=== PATIENT | male | born 1930 | race Hispanic/Latino ===

== ENCOUNTER 2017-09-29 16:17 | Inpatient (IN) | payer MEDICARE, OTHER ==
--- NOTE | 2017-09-29 17:53 | ED PDOC ---
HPI: Trauma/Fall - HPI Time Seen by Provider: 09/29/17 16:35 Chief Complaint (Nursing): Altered Mental Status Chief Complaint (Provider): Fall injury and AMS History Per: Patient History/Exam Limitations: other (memory impairment) Onset/Duration Of Symptoms: Days (x2) Injury Occurred (Timing): Days Ago: (2) Location Of Injury: Left: Arm, Chest Associated Symptoms: Memory Impairment. denies: LOC Additional Complaint(s): Chris Almonte is an 86 year old male, with a past medical history of hypertension, anemia and hypercholesterolemia, who was brought to the emergency department by EMS accompanied by for head and arm injury s/p fall onset x2 days ago. reports that he slipped on ice yesterday, possible head injury without loss of consciousness, he also has injury to left arm and left chest. He was altered and confused with memory problems for a couple of days. Patient states he has never had this problem before but recently he doesn't remember what, where or when. Patient himself denies any medical complaints. PMD: Dr. Canchola - Fall Fall:Prior To Injury: Slipped (on ice) NIHSS Stroke Scale - Date/Time Evaluation Performed Date Performed: 09/29/17 Time Performed: 16:35 When Was NIHSS Performed: Baseline - How Severe is the Stroke Level of Consciousness: 0=Alert LOC to Questions: 1=One correct LOC to commands: 0=Obeys both correctly Best Gaze: 0=Normal Visual: 0=No visual loss Facial: 0=Normal Motor Arm - Left: 0=No drift Motor Arm - Right: 0=No drift Motor Leg - Left: 0=No drift Motor Leg - Right: 0=No drift Limb Ataxia: 0=Absent Sensory: 0=Normal Best Language: 0=No aphasia Dysarthia: 0=Normal articulation Extinction & Inattention (Neglect): 0=Normal, no object Score: 1 Severity Of Stroke: 1-4 = Minor Stroke rTPA Inclusion/Exclusion - Refusal of Treatment Patient Refused Treatment: No - Inclusion Criteria for Altepase Patient is 18 years or Older: Yes The Clinical Diagnosis of Ischemic Stroke That is Causing a Potentially Disabling Neurological Deficit: No Time of Onset is Well Established to be Less Than 270 Minute Before Treatment Would Begin: No Risk/Benefit Discussed With Patient/Family Member Present: No Past Medical History Reviewed: Historical Data, Nursing Documentation, Vital Signs Vital Signs: Last Vital Signs Temp 97.4 F L 09/30/17 08:07 Pulse 75 09/30/17 09:00 Resp 20 09/30/17 08:07 BP 164/95 H 09/30/17 08:34 Pulse Ox 100 09/30/17 11:52 - Medical History PMH: Anemia, Benign Prostatic Hyperplasia, HTN, Hypercholesterolemia - Surgical History Surgical History: No Surg Hx - Family History Family History: States: Unknown Family Hx - Social History Current smoker - smoking cessation education provided: No Alcohol: Other (often) Drugs: Denies - Home Medications Home Medications: Ambulatory Orders Medication Instructions Recorded Aspirin [Ecotrin] 81 mg pe PO DAILY 09/29/17 Atorvastatin [Lipitor] 40 mg PO DAILY 09/29/17 Folic Acid 0.4 mg PO DAILY 09/29/17 Ramipril [Altace] 10 mg PO DAILY 09/29/17 Tamsulosin [Flomax] 0.4 mg PO DAILY 09/29/17 Vit B12/Folic Acid/B6/Aa15 500 mg PO DAILY 09/29/17 [Glycotrol Capsule] Vit B6/Me-Thfolate/Me-B12/Ala 50 mg PO DAILY 09/29/17 [Podiapn Capsule] amLODIPine [Norvasc] 5 mg PO DAILY 09/29/17 - Allergies Allergies/Adverse Reactions: Allergies Allergy/AdvReac Type Severity Reaction Status Date / Time No Known Allergies Allergy Verified 09/29/17 16:19 Review of Systems ROS Statement: Except As Marked, All Systems Reviewed And Found Negative Musculoskeletal: Positive for: Arm Pain (left arm injury), Other (left chest injury) Neurological: Positive for: Altered Mental Status, Other (memory impairment) Physical Exam - Reviewed Nursing Documentation Reviewed: Yes Vital Signs Reviewed: Yes - Physical Exam Appears: Positive for: Non-toxic Head Exam: Positive for: ATRAUMATIC, NORMAL INSPECTION, NORMOCEPHALIC Skin: Positive for: Normal Color, Warm, Dry Eye Exam: Positive for: Normal appearance, EOMI, PERRL Neck: Positive for: Normal, Painless ROM, Supple Cardiovascular/Chest: Positive for: Regular Rate, Rhythm. Negative for: Murmur Respiratory: Positive for: Normal Breath Sounds. Negative for: Respiratory Distress Gastrointestinal/Abdominal: Positive for: Normal Exam, Soft, Other (ecchymosis on left flank). Negative for: Tenderness Back: Positive for: Normal Inspection. Negative for: L CVA Tenderness, R CVA Tenderness Extremity: Positive for: Normal ROM (shoulder normal), Other (ecchymosis on left forearm). Negative for: Deformity (left forearm), Swelling (left forearm) Neurologic/Psych: Positive for: Alert, Oriented (x2), Gait (steady). Negative for: facialist II-XII, Motor/Sensory Deficits - Laboratory Results Result Diagrams: 09/30/17 04:25 09/30/17 04:25 - ECG O2 Sat by Pulse Oximetry: 100 (RA) Pulse Ox Interpretation: Normal Medical Decision Making Medical Decision Making: Initial Impression: mechanical fall with head injury, AMS, left arm injury rule out fracture, left flank injury rule out intra-abdominal bleeding. Differential includes but not limited to: CVA, Intra-cranial bleeding post traumatic, dementia Initial Plan: --Type and screen --Abdomen & Pelvis w/o PO or IV contrast [CT] --Head w/o contrast [CT] --Alcohol serum --BMP --Urine drug screen --Dipstick --CBC w/ differential --PTT --PT --Elbow left 3 views routine [RAD] --Shoulder left [RAD] --reevaluation 17:[address] FINDINGS: HEMORRHAGE: No acute parenchymal, subarachnoid or extra-axial BRAIN: Moderate -significant diffuse/ confluent chronic white matter ischemic changes. There appears to be some extension of these changes into white matter tracts of both basal nuclei. Vascular calcifications are present. VENTRICLES: Moderate dilatation of the 3rd and lateral ventricles felt to be due to central volume loss. CALVARIUM: No acute calvarial fractures. PARANASAL SINUSES: Unremarkable as visualized. No significant inflammatory changes. MASTOID AIR CELLS: Unremarkable as visualized. No inflammatory changes. OTHER FINDINGS: None. IMPRESSION: No acute intracranial hemorrhage. Moderate to significant confluent white matter ischemic changes. 19:00 Patient will be signed out to Dr. Chung, pending CT abdomen, and labs Scribe Attestation: Documented by Blake Burnett, acting as a scribe for Reyes Gaviria MD Provider Scribe Attestation: All medical record entries made by the Scribe were at my direction and personally dictated by me. I have reviewed the chart and agree that the record accurately reflects my personal performance of the history, physical exam, medical decision making, and the department course for this patient. I have also personally directed, reviewed, and agree with the discharge instructions and disposition. Disposition - Clinical Impression Clinical Impression: Altered mental status, Fall, Head injury - Patient ED Disposition Is Patient to be Admitted: Transfer of Care Counseled Patient/Family Regarding: Studies Performed, Diagnosis - Disposition Disposition: Transfer of Care Disposition Time: 19:00 Condition: FAIR Patient Signed Over To: Charlie Chung
--- NOTE | 2017-09-29 18:17 | CT ---
PROCEDURE: CT scan brain dated HISTORY: Head injury. COMPARISON: None available. TECHNIQUE: Contiguous helical/ transaxial computed tomography images were obtained through the head/brain without intravenous contrast. Radiation dose: Total exam DLP = 1082.93 mGy-cm. This CT exam was performed using one or more of the following dose reduction techniques: Automated exposure control, adjustment of the mA and/or kV according to patient size, and/or use of iterative reconstruction technique. . FINDINGS: HEMORRHAGE: No acute parenchymal, subarachnoid or extra-axial BRAIN: Moderate -significant diffuse/ confluent chronic white matter ischemic changes. There appears to be some extension of these changes into white matter tracts of both basal nuclei. Vascular calcifications are present. VENTRICLES: Moderate dilatation of the 3rd and lateral ventricles felt to be due to central volume loss. CALVARIUM: No acute calvarial fractures. PARANASAL SINUSES: Unremarkable as visualized. No significant inflammatory changes. MASTOID AIR CELLS: Unremarkable as visualized. No inflammatory changes. OTHER FINDINGS: None. IMPRESSION: No acute intracranial hemorrhage. Moderate to significant confluent white matter ischemic changes.
[2017-09-29 18:53] LABS: BASO # 0.1 K/uL (0.0-0.2); BASO % 0.7 % (0.0-2.0); EOS % 0.4 % (0.0-4.0); HEMOGLOBIN 13.9 g/dL (12.0-18.0); LYMPH # 2.5 K/uL (1.0-4.3); LYMPH % 25.1 % (20.0-40.0); MEAN CELL VOLUME 95.7 fl (80.0-94.0); MEAN CORPUSCULAR HEMOGLOBIN 31.7 pg (27.0-31.0); MEAN CORPUSCULAR HGB CONC 33.1 g/dL (33.0-37.0); MEAN PLATELET VOLUME 8.5 fl (7.2-11.7); MONO # 0.9 K/uL (0.0-0.8); MONO % 9.5 % (0.0-10.0); NEUT # 6.3 K/uL (1.8-7.0); NEUT % 64.3 % (50.0-75.0); NRBC % 0.1 % (0.0-0.0); RBC 4.38 Mil/uL (4.40-5.90); RED CELL DISTRIBUTION WIDTH 13.3 % (11.5-14.5); WHITE BLOOD COUNT 9.9 K/uL (4.8-10.8)
[2017-09-29 19:01] LABS: BLOOD UREA NITROGEN 19 mg/dl (9-20); GFR AFRICAN-AMERICAN > 60; GFR NON-AFRICAN AMERICAN > 60
[2017-09-29 19:08] LABS: BARBITURATES, UR NEGATIVE (NEGATIVE); BENZODIAZEPINES, UR NEGATIVE (NEGATIVE); OPIATES, UR NEGATIVE (NEGATIVE); PHENCYCLIDINE, UR NEGATIVE (NEGATIVE)
[2017-09-29 19:12] LABS: PARTIAL THROMBOPLASTIN TIME 27.1 Seconds (25.6-37.1); PROTHROMBIN TIME 10.9 Seconds (9.8-13.1)
[2017-09-29] MEDS ORDERED: Potassium Chloride 20 mEq ER Tab PO ONE ×2 (19:14→21:40)
--- NOTE | 2017-09-29 19:20 | ED PDOC ---
- Laboratory Results Result Diagrams: 09/30/17 04:25 09/30/17 04:25 - ECG O2 Sat by Pulse Oximetry: 100 (RA) Medical Decision Making Medical Decision Makin:00 --Patient was transferred to [facility] by Dr. Gaviria, pending labs, CT abdomen, and admission. 19:51 Abd/Pelvis CT FINDINGS: Artifacts: Motion artifact degrades image quality. Lower thorax: Heart size is at the upper limits of normal. There are coronary artery calcifications There is atelectasis and scarring at the lung bases. There is a small hiatal hernia. ABDOMEN: Liver: There is a small calcification in the liver. There are cysts in the liver. Gallbladder and bile ducts: Gallbladder is distended with small dependent stones.There is prominence of the common duct. Pancreas: Pancreas is mildly atrophic. Spleen: unremarkable Adrenals: There is a small left adrenal nodule. There is minimal calcification in the right adrenal. Kidneys and ureters: unremarkable Stomach and bowel: Stomach is partially distended with an air-fluid level. Rotation is normal. There is no obstruction. Ileocecal region is unremarkable. Appendix and terminal ileum are unremarkable.There is radiopaque material and stool throughout the colon. There is minimal diverticulosis Appendix: See stomach and bowel PELVIS: Bladder: There is bladder wall thickening and trabeculation. There are multiple diverticula. There are bladder wall calcifications. There is a mass in the base of the bladder, intrinsic bladder mass versus prostate Reproductive: The prostate is enlarged. Seminal vesicles are unremarkable. ABDOMEN and PELVIS: Intraperitoneal space: There is no free air or free fluid. Bones/joints: There are degenerative changes in the osseus structures. There may be a nondisplaced left ninth rib fracture. Soft tissues: There is a fat containing right inguinal hernia. There is soft tissue thickening in the left inguinal region. There is a small fat containing umbilical hernia. Vasculature: There are vascular calcifications. There are vascular calcifications. Lymph nodes: There is no pathologic adenopathy. IMPRESSION: Bladder wall thickening with trabeculation and wall calcification , differential diagnosis includes schistosomiasis and tuberculosis, mass in the base of the bladder, prostate versus bladder neoplasm, urologic consultation advised Enlarged prostate Gallstones No acute solid visceral or bowel injury identified Pt is aware of results of CT . Additional findings as described above. 20:31 --Dr. Phipps accepted patient for admission Disposition - Clinical Impression Clinical Impression: Altered mental status, Fall, Head injury - POA Present On Arrival: None - Disposition Disposition: Admitted as In-Patient Disposition Time: 19:35 Condition: FAIR
--- NOTE | 2017-09-29 19:51 | CT ---
EXAM: CT Abdomen and Pelvis Without Intravenous Contrast EXAM DATE/TIME: 09/29/2017 5:02 PM CLINICAL HISTORY: 86 years old, male; Pain; Abdominal pain; Generalized; Additional info: Left flank pain injury TECHNIQUE: Axial computed tomography images of the abdomen and pelvis without intravenous contrast. All CT scans at this facility use one or more dose reduction techniques, viz.: automated exposure control; ma/kV adjustment per patient size (including targeted exams where dose is matched to indication; i.e. head); or iterative reconstruction technique. Coronal and sagittal reformatted images were created and reviewed. COMPARISON: There are no prior studies for comparison. FINDINGS: Artifacts: Motion artifact degrades image quality. Lower thorax: Heart size is at the upper limits of normal. There are coronary artery calcifications There is atelectasis and scarring at the lung bases. There is a small hiatal hernia. ABDOMEN: Liver: There is a small calcification in the liver. There are cysts in the liver. Gallbladder and bile ducts: Gallbladder is distended with small dependent stones.There is prominence of the common duct. Pancreas: Pancreas is mildly atrophic. Spleen: unremarkable Adrenals: There is a small left adrenal nodule. There is minimal calcification in the right adrenal. Kidneys and ureters: unremarkable Stomach and bowel: Stomach is partially distended with an air-fluid level. Rotation is normal. There is no obstruction. Ileocecal region is unremarkable. Appendix and terminal ileum are unremarkable.There is radiopaque material and stool throughout the colon. There is minimal diverticulosis Appendix: See stomach and bowel PELVIS: Bladder: There is bladder wall thickening and trabeculation. There are multiple diverticula. There are bladder wall calcifications. There is a mass in the base of the bladder, intrinsic bladder mass versus prostate Reproductive: The prostate is enlarged. Seminal vesicles are unremarkable. ABDOMEN and PELVIS: Intraperitoneal space: There is no free air or free fluid. Bones/joints: There are degenerative changes in the osseus structures. There may be a nondisplaced left ninth rib fracture. Soft tissues: There is a fat containing right inguinal hernia. There is soft tissue thickening in the left inguinal region. There is a small fat containing umbilical hernia. Vasculature: There are vascular calcifications. There are vascular calcifications. Lymph nodes: There is no pathologic adenopathy. IMPRESSION: Bladder wall thickening with trabeculation and wall calcification, differential diagnosis includes schistosomiasis and tuberculosis, mass in the base of the bladder, prostate versus bladder neoplasm, urologic consultation advised Enlarged prostate Gallstones No acute solid visceral or bowel injury identified Additional findings as described above.
[2017-09-30 01:15] LABS: URINE BACTERIA RARE (<OCC); URINE BILIRUBIN NEGATIVE (NEGATIVE); URINE BLOOD NEGATIVE (NEGATIVE); URINE CLARITY SLIGHTY-CLOUDY (Clear); URINE COLOR YELLOW (YELLOW); URINE GLUCOSE (UA) NEG (Normal); URINE LEUKOCYTE ESTERASE NEG Leu/uL (Negative); URINE NITRATE NEGATIVE (NEGATIVE); URINE PROTEIN NEGATIVE (NEGATIVE); URINE UROBILINOGEN 0.2-1.0 mg/dL (0.2-1.0)
[2017-09-30 05:33] LABS: ALB/GLOB RATIO 1.3 (1.0-2.1); ALBUMIN 3.9 g/dL (3.5-5.0); ALT/SGPT 34 U/L (21-72); AST/SGOT 29 U/L (17-59); BLOOD UREA NITROGEN 16 mg/dl (9-20); CALCIUM 9.3 mg/dL (8.4-10.2); GFR AFRICAN-AMERICAN > 60; GFR NON-AFRICAN AMERICAN > 60; HDL CHOLESTEROL 64 MG/DL (30-70)
[2017-09-30 05:35] LABS: HEMOGLOBIN 12.4 g/dL (12.0-18.0); MEAN CORPUSCULAR HEMOGLOBIN 31.7 pg (27.0-31.0); MEAN CORPUSCULAR HGB CONC 33.4 g/dL (33.0-37.0); RBC 3.92 Mil/uL (4.40-5.90); RED CELL DISTRIBUTION WIDTH 12.9 % (11.5-14.5)
[2017-09-30 05:45] LABS: LDL CHOLESTEROL 136 mg/dL (0-129)
[2017-09-30 05:50] LABS: PARTIAL THROMBOPLASTIN TIME 26.2 Seconds (25.6-37.1); PROTHROMBIN TIME 11.4 Seconds (9.8-13.1)
[2017-09-30 05:51] LABS: T4 8.23 ug/dl (5.5-11.0)
[2017-09-30] MEDS ORDERED: Pneumococcal 23-Valent Vaccine IM ONE (06:00)
[2017-09-30] MEDS ORDERED: Influenza Vaccine 18yr & older 0.5 ML/45 MCG SYR IM ONE (06:00)
--- NOTE | 2017-09-30 08:49 | CARD ---
APPROVED REPORT EKG Measurement Heart [id number] <Conclusion> Normal sinus rhythm with sinus arrhythmia Normal ECG
[2017-09-30] MEDS ORDERED: B12 PO SCH (09:00)
[2017-09-30] MEDS ORDERED: B6 PO SCH (09:00)
[2017-09-30] MEDS ORDERED: [UNRECOGNIZED DRUG - OTHER] PO SCH (09:00)
[2017-09-30] MEDS ORDERED: VIT B12 PO SCH (09:00)
[2017-09-30] MEDS ORDERED: Patient's Own Med (Ramipril [Altace] 10 MG) PO SCH (09:00)
[2017-09-30] MEDS ORDERED: ALA PO SCH (09:00)
[2017-09-30] MEDS ORDERED: THFOLATE PO SCH (09:00)
[2017-09-30] MEDS ORDERED: FOLIC ACID PO SCH (09:00)
[2017-09-30] MEDS ORDERED: [UNRECOGNIZED DRUG - OTHER] PO SCH (09:00)
[2017-09-30] MEDS ORDERED: VIT B6 PO SCH (09:00)
--- NOTE | 2017-09-30 11:01 | RAD ---
PROCEDURE: Radiographs of the Left Shoulder HISTORY: left shoulder injury COMPARISON: No prior. FINDINGS: BONES: No acute fracture. JOINTS: Acromioclavicular degenerative changes. SOFT TISSUES: Normal. OTHER FINDINGS: Calcific/ossific densities in the axillary recess and region of the insertion of the supraspinatus tendon. IMPRESSION: No acute fracture. Calcific/ossificdensities in the axillary recess and region of the insertion of the supraspinatus tendon may be related to degenerative loose bodies and/or calcific tendinitis.
--- NOTE | 2017-09-30 11:02 | RAD ---
PROCEDURE: Radiographs of the left elbow. HISTORY: left elbow pain injury COMPARISON: No prior. FINDINGS: BONES: No acute fracture. JOINTS: Mildly narrowed. SOFT TISSUES: Olecranon region soft tissue swelling. JOINT EFFUSION: None. OTHER FINDINGS: None IMPRESSION: Olecranon region soft tissue swelling without demonstrated acute fracture or dislocation. Mild degenerative changes.
--- NOTE | 2017-09-30 11:17 | CARD ---
APPROVED REPORT EXAM: Two-dimensional and M-mode echocardiogram with Doppler and color Doppler. Other Information Quality : FairRhythm : NSR INDICATION Syncope 2D DIMENSIONS IVSd2.11 (0.7-1.1cm)LVDd3.62 (3.9-5.9cm) LVOT Diameter2.01 (1.8-2.4cm)PWd1.52 (0.7-1.1cm) IVSs1.62 (0.8-1.2cm)LVDs3.14 (2.5-4.0cm) FS (%) 13.4 %PWs1.74 (0.8-1.2cm) LVEF (%)62.0 (>50%) M-Mode DIMENSIONS Left Atrium (MM)4.68 (2.5-4.0cm)Aortic Root2.96 (2.2-3.7cm) Aortic Cusp Exc.1.92 (1.5-2.0cm) Aortic Valve AoV Peak Swkosjuy639.5cm/sAoV VTI64.9cmAO Peak GR.41mmHg LVOT Peak Mtsniisj955.6cm/sLVOT VTI19.10cmAO Mean GR.29mmHg AI P 1/2 Sunt008bh Mitral Valve MV E Lerfloor52.9cm/sMV E Peak Gr.77mmHgMV DECEL [id number] MV A Smkhwfqj89.5cm/sMV ODL22coX/A ratio0.6 MVA (PHT)3.70cm2 TDI Lateral E' Peak V9.94cm/sE/Lateral E'5.3E/Medial E'0.0 Tricuspid Valve TR Peak Lkjvoosl663tr/sRAP TECHUVNL0nfUuXC Peak Gr.24mmHg WEDE30hrPo LEFT VENTRICLE The left ventricle is normal in size. There is mild concentric left ventricular hypertrophy on the 2D study. The left ventricular function is normal. The left ventricular ejection fraction is 65-70%. There is normal LV segmental wall motion. Transmitral Doppler flow pattern is Grade I-abnormal relaxation pattern. No left ventricle thrombus noted on this study. There is no ventricular septal defect visualized. There is no left ventricular aneurysm. There is no mass noted in the left ventricle. RIGHT VENTRICLE The right ventricle is normal size. There is normal right ventricular wall thickness. The right ventricular systolic function is normal. ATRIA The left atrium is mildly dilated. There is no thrombus suspected in the left atrium. The right atrium size is normal. The interatrial septum is intact with no evidence for an atrial septal defect. AORTIC VALVE The aortic valve is moderately to severely calcified. There is mild aortic regurgitation. There is moderate valvular aortic stenosis. Calculated aortic valve area is 1.10 cm2 with maximum pressure gradient of 37 mmHg and mean pressure gradient of 29 mmHg. MITRAL VALVE The mitral valve is normal in structure. There is no evidence of mitral valve prolapse. There is no mitral valve stenosis. Mitral regurgitation is mild to moderate. TRICUSPID VALVE The tricuspid valve is normal in structure. There is moderate tricuspid regurgitation. Right ventricular systolic pressure is estimated at 35 mmHg. There is no tricuspid valve prolapse or vegetation. There is no tricuspid valve stenosis. PULMONIC VALVE The pulmonic valve is not well visualized. There is no pulmonic valvular regurgitation. GREAT VESSELS The aortic root is normal in size. The IVC was not well visualized. PERICARDIAL EFFUSION There is a small anterior echo free space. There is no pleural effusion. <Conclusion> The left ventricle is normal in size. There is mild concentric left ventricular hypertrophy on the 2D study. The left ventricular function is normal. The left ventricular ejection fraction is 65-70%. The left atrium is mildly dilated. There is moderate aortic stenosis with an aortic valve area of 1.10 cm2 and there is mild aortic regurgitation. The mitral valve and tricuspid valves are normal. There is mild to moderate mitral regurgitation and moderate tricuspid regurgitation.
--- NOTE | 2017-09-30 14:34 | CP.PCM.CON ---
History of Present Illness - History of Present Illness History of Present Illness: 86 yr old male who fell at home yesterday and was disoriented. The says that in the last week, he has had 2 episodes of falling over while he was sitting down, not even when he was standing. There is no history of subdural, stroke, or aphasia. No focal weakness noted, no urinary incontinence, headache, nausea or vomiting. He has not started any new medications, nor has he had any recent surgical procedures. At baseline, says he pays the bills, takes care of Adls and drives. He consumes, according to her report, about 3 shots of whisky daily and has not drank in 3 days. PMH/PSH: as above. FH/SH: . no children. Icelandic. 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 All: nkda. Laboratory Results - last 72 hr 09/29/17 09/29/17 09/29/17 18:15 18:45 18:45 WBC 9.9 RBC 4.38 L Hgb 13.9 Hct 41.9 MCV 95.7 H MCH 31.7 H MCHC 33.1 RDW 13.3 Plt Count 260 MPV 8.5 Neut % (Auto) 64.3 Lymph % (Auto) 25.1 [place] % (Auto) 9.5 Eos % (Auto) 0.4 Baso % (Auto) 0.7 Neut # 6.3 Lymph # 2.5 [place] # 0.9 H Eos # 0.0 Baso # 0.1 PT INR APTT Sodium 141 Potassium 3.1 L Chloride 97 L Carbon Dioxide 30 Anion Gap 17 BUN 19 Creatinine 1.1 Est GFR ( Amer) > 60 Est GFR (Non-Af Amer) > 60 Random Glucose 112 H Calcium 10.0 Total Bilirubin AST ALT Alkaline Phosphatase Total Protein Albumin Globulin Albumin/Globulin Ratio Triglycerides Cholesterol LDL Cholesterol Direct HDL Cholesterol Prostate Specific Ag Vitamin B12 Thyroxine (T4) TSH 3rd Generation Urine Color Urine Clarity Urine pH Ur Specific [place] Urine Protein Urine Glucose (UA) Urine Ketones Urine Blood Urine Nitrate Urine Bilirubin Urine Urobilinogen Ur Leukocyte Esterase Urine RBC (Auto) Urine Microscopic WBC Urine Bacteria Urine Opiates Screen Urine Methadone Screen Ur Barbiturates Screen Ur Phencyclidine Scrn Ur Amphetamines Screen U Benzodiazepines Scrn U Oth Cocaine Metabols U Cannabinoids Screen Alcohol, Quantitative < 10 Blood Type A POSITIVE Antibody Screen Negative BBK History Checked No verified bt 09/29/17 09/29/17 09/30/17 18:45 18:45 01:08 WBC RBC Hgb Hct MCV MCH MCHC RDW Plt Count MPV Neut % (Auto) Lymph % (Auto) [place] % (Auto) Eos % (Auto) Baso % (Auto) Neut # Lymph # [place] # Eos # Baso # PT 10.9 INR 1.0 APTT 27.1 Sodium Potassium Chloride Carbon Dioxide Anion Gap BUN Creatinine Est GFR ( Amer) Est GFR (Non-Af Amer) Random Glucose Calcium Total Bilirubin AST ALT Alkaline Phosphatase Total Protein Albumin Globulin Albumin/Globulin Ratio Triglycerides Cholesterol LDL Cholesterol Direct HDL Cholesterol Prostate Specific Ag Vitamin B12 Thyroxine (T4) TSH 3rd Generation Urine Color Yellow Urine Clarity Slighty-cloudy Urine pH 7.0 Ur Specific [place] 1.015 Urine Protein Negative Urine Glucose (UA) Neg Urine Ketones Negative Urine Blood Negative Urine Nitrate Negative Urine Bilirubin Negative Urine Urobilinogen 0.2-1.0 Ur Leukocyte Esterase Neg Urine RBC (Auto) 3 Urine Microscopic WBC 2 Urine Bacteria Rare Urine Opiates Screen Negative Urine Methadone Screen Negative Ur Barbiturates Screen Negative Ur Phencyclidine Scrn Negative Ur Amphetamines Screen Negative U Benzodiazepines Scrn Negative U Oth Cocaine Metabols Negative U Cannabinoids Screen Negative Alcohol, Quantitative Blood Type Antibody Screen BBK History Checked 09/30/17 09/30/17 09/30/17 04:25 04:25 04:25 WBC 8.0 RBC 3.92 L Hgb 12.4 Hct 37.2 MCV 95.0 H MCH 31.7 H MCHC 33.4 RDW 12.9 Plt Count 208 MPV Neut % (Auto) Lymph % (Auto) [place] % (Auto) Eos % (Auto) Baso % (Auto) Neut # Lymph # [place] # Eos # Baso # PT 11.4 INR 1.0 APTT 26.2 Sodium 141 Potassium 3.5 L Chloride 102 Carbon Dioxide 28 Anion Gap 15 BUN 16 Creatinine 1.0 Est GFR ( Amer) > 60 Est GFR (Non-Af Amer) > 60 Random Glucose 111 H Calcium 9.3 Total Bilirubin 0.8 AST 29 ALT 34 Alkaline Phosphatase 58 Total Protein 7.0 Albumin 3.9 Globulin 3.1 Albumin/Globulin Ratio 1.3 Triglycerides 204 H Cholesterol 235 H LDL Cholesterol Direct 136 H HDL Cholesterol 64 Prostate Specific Ag 7.27 H Vitamin B12 319 Thyroxine (T4) 8.23 TSH 3rd Generation 1.58 Urine Color Urine Clarity Urine pH Ur Specific [place] Urine Protein Urine Glucose (UA) Urine Ketones Urine Blood Urine Nitrate Urine Bilirubin Urine Urobilinogen Ur Leukocyte Esterase Urine RBC (Auto) Urine Microscopic WBC Urine Bacteria Urine Opiates Screen Urine Methadone Screen Ur Barbiturates Screen Ur Phencyclidine Scrn Ur Amphetamines Screen U Benzodiazepines Scrn U Oth Cocaine Metabols U Cannabinoids Screen Alcohol, Quantitative Blood Type Antibody Screen BBK History Checked Temp Pulse Resp BP Pulse Ox 98.0 F 80 20 133/77 98 09/30/17 12:28 09/30/17 12:28 09/30/17 12:28 09/30/17 12:28 09/30/17 12:28 On exam: Awake, not alert, not oriented to person or place or time. Very agitated, hit me on exam. Speaks tajik, and says he is not dysarthric Unable to test for asterixis. EOMI. Cn 2-12 normal. Motor: very strong all muscle groups. Unable to test sensory modalities. Speech is fluent, but tangential. Refuses to name or repeat. Does not follow commands. Cerebellar: refused gait testing. +1 dtr ul and ll bl. Toes downgoing. No clonus. Ct head: normal. Impression: 86 yr old male with what appears to be encephalopathy, differential of hepatic or uremic. He has a vague history of daily alcohol use, that the states is about 1-2 shots, but i suspect that the amount is more. I am also concerned about an infection. I will order ammonia, lfts, amylase, lipase, MRI brain withotu rudy and EEG. If above are normal, we will do LP. In addition, he should be watched for alcohol withdrawal, although he is not yet displaying signs. Plan: 1. MRI Brain without gadolinium 2. Ammonia, amylase, lipase, lfts 3. IV fluids normal saline/ ? banana bag. 4. EEG Review of Systems - Review of Systems Systems not reviewed;Unavailable: Altered Mental Status, Psychotic - Neurological Neurological: Behavioral Changes, Dizziness Past Patient History - Past Medical History & Family History Past Medical History?: Yes - Past Social History Alcohol: Other (often) Drugs: Denies - CARDIAC Hx Hypercholesterolemia: Yes Hx Hypertension: Yes - PULMONARY Hx Respiratory Disorders: No - HEMATOLOGICAL/ONCOLOGICAL Hx Anemia: Yes - MUSCULOSKELETAL/RHEUMATOLOGICAL Hx Falls: Yes - GENITOURINARY/GYNECOLOGICAL Hx Genitourinary Disorders: Yes Other/Comment: BPH - PSYCHIATRIC Hx Substance Use: No - SURGICAL HISTORY Hx Surgeries: No - ANESTHESIA Hx Anesthesia: No Hx Anesthesia Reactions: No Meds Allergies/Adverse Reactions: Allergies Allergy/AdvReac Type Severity Reaction Status Date / Time No Known Allergies Allergy Verified 09/29/17 16:19 - Medications Medications: Current Medications Amlodipine Besylate (Norvasc) 5 mg PO DAILY [facility] Last Admin: 09/30/17 08:33 Dose: 5 mg Aspirin (Ecotrin) 81 mg PO DAILY [facility] Last Admin: 09/30/17 08:34 Dose: 81 mg Atorvastatin Calcium (Lipitor) 40 mg PO DAILY [facility] Last Admin: 09/30/17 08:34 Dose: 40 mg Enoxaparin Sodium (Lovenox) 40 mg SC DAILY [facility] PRN Reason: Protocol Folic Acid (Folic Acid) 1 mg PO DAILY [facility] Last Admin: 09/30/17 13:06 Dose: 1 mg Ramipril (Altace) 10 mg PO DAILY [facility] Last Admin: 09/30/17 08:34 Dose: 10 mg Tamsulosin HCl (Flomax) 0.4 mg PO DAILY [facility] Last Admin: 09/30/17 08:34 Dose: 0.4 mg Results - Vital Signs Recent Vital Signs: Last Vital Signs Temp 98.0 F 09/30/17 12:28 Pulse 80 09/30/17 12:28 Resp 20 09/30/17 12:28 BP 133/77 09/30/17 12:28 Pulse Ox 98 09/30/17 12:28 - Labs Result Diagrams: 09/30/17 04:25 09/30/17 04:25 Labs: Laboratory Results - last 24 hr 09/29/17 09/29/17 09/29/17 18:15 18:45 18:45 WBC 9.9 RBC 4.38 L Hgb 13.9 Hct 41.9 MCV 95.7 H MCH 31.7 H MCHC 33.1 RDW 13.3 Plt Count 260 MPV 8.5 Neut % (Auto) 64.3 Lymph % (Auto) 25.1 [place] % (Auto) 9.5 Eos % (Auto) 0.4 Baso % (Auto) 0.7 Neut # 6.3 Lymph # 2.5 [place] # 0.9 H Eos # 0.0 Baso # 0.1 PT INR APTT Sodium 141 Potassium 3.1 L Chloride 97 L Carbon Dioxide 30 Anion Gap 17 BUN 19 Creatinine 1.1 Est GFR ( Amer) > 60 Est GFR (Non-Af Amer) > 60 Random Glucose 112 H Calcium 10.0 Total Bilirubin AST ALT Alkaline Phosphatase Total Protein Albumin Globulin Albumin/Globulin Ratio Triglycerides Cholesterol LDL Cholesterol Direct HDL Cholesterol Prostate Specific Ag Vitamin B12 Thyroxine (T4) TSH 3rd Generation Urine Color Urine Clarity Urine pH Ur Specific [place] Urine Protein Urine Glucose (UA) Urine Ketones Urine Blood Urine Nitrate Urine Bilirubin Urine Urobilinogen Ur Leukocyte Esterase Urine RBC (Auto) Urine Microscopic WBC Urine Bacteria Urine Opiates Screen Urine Methadone Screen Ur Barbiturates Screen Ur Phencyclidine Scrn Ur Amphetamines Screen U Benzodiazepines Scrn U Oth Cocaine Metabols U Cannabinoids Screen Alcohol, Quantitative < 10 Blood Type A POSITIVE Antibody Screen Negative BBK History Checked No verified bt 09/29/17 09/29/17 09/30/17 18:45 18:45 01:08 WBC RBC Hgb Hct MCV MCH MCHC RDW Plt Count MPV Neut % (Auto) Lymph % (Auto) [place] % (Auto) Eos % (Auto) Baso % (Auto) Neut # Lymph # [place] # Eos # Baso # PT 10.9 INR 1.0 APTT 27.1 Sodium Potassium Chloride Carbon Dioxide Anion Gap BUN Creatinine Est GFR ( Amer) Est GFR (Non-Af Amer) Random Glucose Calcium Total Bilirubin AST ALT Alkaline Phosphatase Total Protein Albumin Globulin Albumin/Globulin Ratio Triglycerides Cholesterol LDL Cholesterol Direct HDL Cholesterol Prostate Specific Ag Vitamin B12 Thyroxine (T4) TSH 3rd Generation Urine Color Yellow Urine Clarity Slighty-cloudy Urine pH 7.0 Ur Specific [place] 1.015 Urine Protein Negative Urine Glucose (UA) Neg Urine Ketones Negative Urine Blood Negative Urine Nitrate Negative Urine Bilirubin Negative Urine Urobilinogen 0.2-1.0 Ur Leukocyte Esterase Neg Urine RBC (Auto) 3 Urine Microscopic WBC 2 Urine Bacteria Rare Urine Opiates Screen Negative Urine Methadone Screen Negative Ur Barbiturates Screen Negative Ur Phencyclidine Scrn Negative Ur Amphetamines Screen Negative U Benzodiazepines Scrn Negative U Oth Cocaine Metabols Negative U Cannabinoids Screen Negative Alcohol, Quantitative Blood Type Antibody Screen BBK History Checked 09/30/17 09/30/17 09/30/17 04:25 04:25 04:25 WBC 8.0 RBC 3.92 L Hgb 12.4 Hct 37.2 MCV 95.0 H MCH 31.7 H MCHC 33.4 RDW 12.9 Plt Count 208 MPV Neut % (Auto) Lymph % (Auto) [place] % (Auto) Eos % (Auto) Baso % (Auto) Neut # Lymph # [place] # Eos # Baso # PT 11.4 INR 1.0 APTT 26.2 Sodium 141 Potassium 3.5 L Chloride 102 Carbon Dioxide 28 Anion Gap 15 BUN 16 Creatinine 1.0 Est GFR ( Amer) > 60 Est GFR (Non-Af Amer) > 60 Random Glucose 111 H Calcium 9.3 Total Bilirubin 0.8 AST 29 ALT 34 Alkaline Phosphatase 58 Total Protein 7.0 Albumin 3.9 Globulin 3.1 Albumin/Globulin Ratio 1.3 Triglycerides 204 H Cholesterol 235 H LDL Cholesterol Direct 136 H HDL Cholesterol 64 Prostate Specific Ag 7.27 H Vitamin B12 319 Thyroxine (T4) 8.23 TSH 3rd Generation 1.58 Urine Color Urine Clarity Urine pH Ur Specific [place] Urine Protein Urine Glucose (UA) Urine Ketones Urine Blood Urine Nitrate Urine Bilirubin Urine Urobilinogen Ur Leukocyte Esterase Urine RBC (Auto) Urine Microscopic WBC Urine Bacteria Urine Opiates Screen Urine Methadone Screen Ur Barbiturates Screen Ur Phencyclidine Scrn Ur Amphetamines Screen U Benzodiazepines Scrn U Oth Cocaine Metabols U Cannabinoids Screen Alcohol, Quantitative Blood Type Antibody Screen BBK History Checked
[2017-09-30] MEDS: Enoxaparin 40 mg Syringe SC SCH (15:00)
[2017-09-30 15:33] LABS: AMYLASE 79 U/L (30-110); LIPASE 101 U/L (23-300)
[2017-09-30 15:34] LABS: ALB/GLOB RATIO 1.3 (1.0-2.1); ALBUMIN 4.1 g/dL (3.5-5.0)
[2017-09-30 15:36] LABS: BILIRUBIN,DIRECT 0.3 mg/ml (0.0-0.4)
--- NOTE | 2017-09-30 16:35 | CP.PCM.HP ---
History of Present Illness - History of Present Illness History of Present Illness: CC: Fall/Trauma. 86 y/o M, Hx of HTN, Hypercholesterolemia, anemia, brought to ER [facility], [place] by EMS and accompany by for evaluation of head, L arm, L shoulder, L elbow and L flank injury s/p fall 2 days [employer] with no relief of pain. As per , Pt was seated on ground when toppled sideway hitting his head, injuring his L arm, L shoulder, L flank, denied LOC. but associated AMS after fall. Worsening symptoms: Pt c/o of pain in these sites, unable to cooperate with history. Worsening symptoms: Unable to remember event of fall, Dementia, forgetful. Aggravated factor: Unable to do any ADL. As per : No fever, chills, blurry vision, numbness, CP, SOB, abdominal pain , n/v/d, sick contact, recent travel. CT Abdomen/Pelv shows: Bladder wall thickening, enlarged prostate, mass in the bladder, gallstones. Elbow X-Ray: No acute Fx. [place] X-Ray: No acute Fx. Head CT: No acute intracranial hemorrhage. Echo: LVEF: 65-70%, moderate aortic stenosis, mild aortic regurgitation. Present on Admission - Present on Admission Any Indicators Present on Admission: No Review of Systems - Constitutional Constitutional: Frequent Falls, Weakness - EENT Eyes: absent: As Per HPI, Blind Spots, Blurred Vision, Change in Vision, Decreased Night Vision, Diplopia, Discharge, Dry Eye, Exophthalmos, Floaters, Irritation, Itchy Eyes, Loss of Peripheral Vision, Pain, Photophobia, Requires Corrective Lenses, Sees Flashes, Spots in Vision, Tunnel Vision, Other Visual Disturbances, Loss of Vision, Other Ears: absent: As Per HPI, Decreased Hearing, Ear Discharge, Ear Pain, Tinnitus, Abnormal Hearing, Disequilibrium, Dizziness, Other Nose/Mouth/Throat: absent: As Per HPI, Epistaxis, Nasal Congestion, Nasal Discharge, Nasal Obstruction, Nasal Trauma, Nose Pain, Post Nasal Drip, Sinus Pain, Sinus Pressure, Bleeding Gums, Change in Voice, Dental Pain, Dry Mouth, Dysphagia, Halitosis, Hoarsness, Lip Swelling, Mouth Lesions, Mouth Pain, Odynophagia, Sore Throat, Throat Swelling, Tongue Swelling, Facial Pain, Neck Pain, Neck Mass, Other - Cardiovascular Cardiovascular: absent: As Per HPI, Acrocyanosis, Chest Pain, Chest Pain at Rest , Chest Pain with Activity, Claudication, Diaphoresis, Dyspnea, Dyspnea on Exertion, Edema, Irregular Heart Rhythm, Pain Radiating to Arm/Neck/Jaw, Leg Edema, Leg Ulcers, Lightheadedness, Orthopnea, Palpitations, Paroxysmal Nocturnal Dyspnea, Pedal Edema, Radiating Pain, Rapid Heart Rate, Slow Heart Rate, Syncope, Other - Respiratory Respiratory: absent: As Per HPI, Cough, Dyspnea, Hemoptysis, Dyspnea on Exertion , Wheezing, Snoring, Stridor, Pain on Inspiration, Chest Congestion, Excessive Mucous Production, Change in Mucous Color, Pain with Coughing, Other - Gastrointestinal Gastrointestinal: absent: As Per HPI, Abdominal Pain, Belching, Bloating, Change in Bowel Habits, Change in Stool Character, Coffee Ground Emesis, Constipation, Cramping, Diarrhea, Dyspepsia, Dysphagia, Early Satiety, Excessive Flatus, Fecal Incontinence, Heartburn, Hematemesis, Hematochezia, Loose Stools, Melena, Nausea, Odynophagia, Temesmus, Vomiting, Other - Genitourinary Genitourinary: absent: As Per HPI, Change in Urinary Stream, Difficulty Urinating, Dysuria, Flank Pain, Hematuria, Pyuria, Nocturia, Urinary Incontinence, Urinary Frequency, Urinary Hesitance, Urinary Urgency, Voiding Freq/Small Amts, Freq UTI, Hx Renal/Bladder Calculi, Hx /Renal Surgery, Bladder Distension, Other - Musculoskeletal Musculoskeletal: Other (pain LUE, L upper elbow). absent: As Per HPI, Abnormal Gait, Arthralgias, Atrophy, Back Pain, Deformity, Joint Swelling, Limited Range of Motion, Loss of Height, Muscle Cramps, Muscle Weakness, Myalgias, Neck Pain, Numbness, Radiating Pain into Limb, Stiffness, Tingling - Integumentary Integumentary: Other (Abrasion L lateral abdomen, L arm, L upper elbow). absent : As Per HPI, Acne, Alopecia, Bleeding Lesions, Change in Hair, Change in Nails , Change in Pigmentation, Changing Lesions, Dry Skin, Erythema, Furuncle, Hirsutism, Lesions, New Lesions, Non-Healing Lesions, Photosensitivity, Pruritus , Rash, Skin Pain, Skin Ulcer, Sores, Striae, Swelling, Unusual Bruising, Wounds , Jaundice - Neurological Neurological: Confusion, Frequent Falls, Memory Loss, Weakness. absent: As Per HPI, Abnormal Gait, Abnormal Hearing, Abnormal Movements, Abnormal Speech, Behavioral Changes, Burning Sensations, Convulsions, Disequilibrium, Dizziness, Numbness, Focal Weakness, Headaches, Lack of Coordination, Loss of Vision, Paresthesias, Radicular Pain, Restless Legs, Sensory Deficit, Syncope, Tingling , Tremor, Vertigo, Other Visual Disturbances, Other - Psychiatric Psychiatric: Memory Loss. absent: As Per HPI, Abnormal Sleep Pattern, Anhedonia , Anxiety, Auditory Hallucinations, Behavioral Changes, Change in Appetite, Change in Libido, Confusion, Depression, Difficulty Concentrating, Hallucinations, Homicidal Ideation, Hopelessness, Irritability, Mood Swings, Panic Attacks, Paranoia, Suicidal Ideation, Visual Hallucinations, Tactile Hallucinations, Other - Endocrine Endocrine: absent: As Per HPI, Change in Body Appearance, Change in Libido, Cold Intolorance, Deepening of Voice, Excessive Sweating, Fatigue, Flushing, Heat Intolorance, Increase in Ring/Shoe/Hat Size, Palpitations, Polydipsia, Polyphagia, Polyuria, Other - Hematologic/Lymphatic Hematologic: absent: As Per HPI, Easy Bleeding, Easy Bruising, Lymphadenopathy, Other Past Patient History - Past Medical History & Family History Past Medical History?: Yes Pertinent Family History: Unknown - Past Social History Smoking Status: Never Smoked Alcohol: None (often) Drugs: Denies Home Situation {Lives}: With Family - CARDIAC Hx Cardiac Disorders: Yes Hx Hypercholesterolemia: Yes Hx Hypertension: Yes - PULMONARY Hx Respiratory Disorders: No - HEENT Hx HEENT Problems: No - RENAL Hx Chronic Kidney Disease: No - ENDOCRINE/METABOLIC Hx Endocrine Disorders: No - HEMATOLOGICAL/ONCOLOGICAL Hx Blood Disorders: Yes Hx Anemia: Yes - INTEGUMENTARY Hx Dermatological Problems: No - MUSCULOSKELETAL/RHEUMATOLOGICAL Hx Musculoskeletal Disorders: Yes Hx Falls: Yes - GASTROINTESTINAL Hx Gastrointestinal Disorders: No - GENITOURINARY/GYNECOLOGICAL Hx Genitourinary Disorders: Yes Other/Comment: BPH - PSYCHIATRIC Hx Psychophysiologic Disorder: No Hx Substance Use: No - SURGICAL HISTORY Hx Surgeries: No - ANESTHESIA Hx Anesthesia: No Hx Anesthesia Reactions: No Meds Allergies/Adverse Reactions: Allergies Allergy/AdvReac Type Severity Reaction Status Date / Time No Known Allergies Allergy Verified 09/29/17 16:19 Physical Exam - Constitutional Appears: No Acute Distress - Head Exam Head Exam: NORMAL INSPECTION - Eye Exam Eye Exam: PERRL - ENT Exam ENT Exam: Normal Exam - Neck Exam Neck exam: Positive for: Normal Inspection - Respiratory Exam Respiratory Exam: NORMAL BREATHING PATTERN - Cardiovascular Exam Cardiovascular Exam: REGULAR RHYTHM - GI/Abdominal Exam GI & Abdominal Exam: Normal Bowel Sounds, Soft Additional comments: Abrasion L flank - Extremities Exam Additional comments: Abrasion L arm, L elbow. - Back Exam Back exam: NORMAL INSPECTION - Neurological Exam Neurological exam: CN II-XII Intact Additional comments: Awake, confused, move all extremities no gross focal motor/sensory deficit - Psychiatric Exam Psychiatric exam: Normal Mood - Skin Skin Exam: Abrasion (L fnak,LUE, L elbow), Warm Results - Vital Signs Recent Vital Signs: Last Vital Signs Temp 98.1 F 09/30/17 16:17 Pulse 86 09/30/17 16:17 Resp 16 09/30/17 16:17 BP 122/84 09/30/17 16:17 Pulse Ox 97 09/30/17 16:17 reviewed J.PChristian - Labs Result Diagrams: 10/01/17 04:15 10/01/17 04:15 Labs: Laboratory Results - last 24 hr 09/29/17 09/29/17 09/29/17 18:15 18:45 18:45 WBC 9.9 RBC 4.38 L Hgb 13.9 Hct 41.9 MCV 95.7 H MCH 31.7 H MCHC 33.1 RDW 13.3 Plt Count 260 MPV 8.5 Neut % (Auto) 64.3 Lymph % (Auto) 25.1 [place] % (Auto) 9.5 Eos % (Auto) 0.4 Baso % (Auto) 0.7 Neut # 6.3 Lymph # 2.5 [place] # 0.9 H Eos # 0.0 Baso # 0.1 PT INR APTT Sodium 141 Potassium 3.1 L Chloride 97 L Carbon Dioxide 30 Anion Gap 17 BUN 19 Creatinine 1.1 Est GFR ( Amer) > 60 Est GFR (Non-Af Amer) > 60 Random Glucose 112 H Calcium 10.0 Total Bilirubin Direct Bilirubin AST ALT Alkaline Phosphatase Ammonia Total Protein Albumin Globulin Albumin/Globulin Ratio Triglycerides Cholesterol LDL Cholesterol Direct HDL Cholesterol Amylase Lipase Prostate Specific Ag Vitamin B12 Thyroxine (T4) TSH 3rd Generation Urine Color Urine Clarity Urine pH Ur Specific [place] Urine Protein Urine Glucose (UA) Urine Ketones Urine Blood Urine Nitrate Urine Bilirubin Urine Urobilinogen Ur Leukocyte Esterase Urine RBC (Auto) Urine Microscopic WBC Urine Bacteria Urine Opiates Screen Urine Methadone Screen Ur Barbiturates Screen Ur Phencyclidine Scrn Ur Amphetamines Screen U Benzodiazepines Scrn U Oth Cocaine Metabols U Cannabinoids Screen Alcohol, Quantitative < 10 Blood Type A POSITIVE Antibody Screen Negative BBK History Checked No verified bt 09/29/17 09/29/17 09/30/17 18:45 18:45 01:08 WBC RBC Hgb Hct MCV MCH MCHC RDW Plt Count MPV Neut % (Auto) Lymph % (Auto) [place] % (Auto) Eos % (Auto) Baso % (Auto) Neut # Lymph # [place] # Eos # Baso # PT 10.9 INR 1.0 APTT 27.1 Sodium Potassium Chloride Carbon Dioxide Anion Gap BUN Creatinine Est GFR ( Amer) Est GFR (Non-Af Amer) Random Glucose Calcium Total Bilirubin Direct Bilirubin AST ALT Alkaline Phosphatase Ammonia Total Protein Albumin Globulin Albumin/Globulin Ratio Triglycerides Cholesterol LDL Cholesterol Direct HDL Cholesterol Amylase Lipase Prostate Specific Ag Vitamin B12 Thyroxine (T4) TSH 3rd Generation Urine Color Yellow Urine Clarity Slighty-cloudy Urine pH 7.0 Ur Specific [place] 1.015 Urine Protein Negative Urine Glucose (UA) Neg Urine Ketones Negative Urine Blood Negative Urine Nitrate Negative Urine Bilirubin Negative Urine Urobilinogen 0.2-1.0 Ur Leukocyte Esterase Neg Urine RBC (Auto) 3 Urine Microscopic WBC 2 Urine Bacteria Rare Urine Opiates Screen Negative Urine Methadone Screen Negative Ur Barbiturates Screen Negative Ur Phencyclidine Scrn Negative Ur Amphetamines Screen Negative U Benzodiazepines Scrn Negative U Oth Cocaine Metabols Negative U Cannabinoids Screen Negative Alcohol, Quantitative Blood Type Antibody Screen BBK History Checked 09/30/17 09/30/17 09/30/17 04:25 04:25 04:25 WBC 8.0 RBC 3.92 L Hgb 12.4 Hct 37.2 MCV 95.0 H MCH 31.7 H MCHC 33.4 RDW 12.9 Plt Count 208 MPV Neut % (Auto) Lymph % (Auto) [place] % (Auto) Eos % (Auto) Baso % (Auto) Neut # Lymph # [place] # Eos # Baso # PT 11.4 INR 1.0 APTT 26.2 Sodium 141 Potassium 3.5 L Chloride 102 Carbon Dioxide 28 Anion Gap 15 BUN 16 Creatinine 1.0 Est GFR ( Amer) > 60 Est GFR (Non-Af Amer) > 60 Random Glucose 111 H Calcium 9.3 Total Bilirubin 0.8 Direct Bilirubin AST 29 ALT 34 Alkaline Phosphatase 58 Ammonia Total Protein 7.0 Albumin 3.9 Globulin 3.1 Albumin/Globulin Ratio 1.3 Triglycerides 204 H Cholesterol 235 H LDL Cholesterol Direct 136 H HDL Cholesterol 64 Amylase Lipase Prostate Specific Ag 7.27 H Vitamin B12 319 Thyroxine (T4) 8.23 TSH 3rd Generation 1.58 Urine Color Urine Clarity Urine pH Ur Specific [place] Urine Protein Urine Glucose (UA) Urine Ketones Urine Blood Urine Nitrate Urine Bilirubin Urine Urobilinogen Ur Leukocyte Esterase Urine RBC (Auto) Urine Microscopic WBC Urine Bacteria Urine Opiates Screen Urine Methadone Screen Ur Barbiturates Screen Ur Phencyclidine Scrn Ur Amphetamines Screen U Benzodiazepines Scrn U Oth Cocaine Metabols U Cannabinoids Screen Alcohol, Quantitative Blood Type Antibody Screen BBK History Checked 09/30/17 09/30/17 09/30/17 15:02 15:02 15:02 WBC RBC Hgb Hct MCV MCH MCHC RDW Plt Count MPV Neut % (Auto) Lymph % (Auto) [place] % (Auto) Eos % (Auto) Baso % (Auto) Neut # Lymph # [place] # Eos # Baso # PT INR APTT Sodium Potassium Chloride Carbon Dioxide Anion Gap BUN Creatinine Est GFR ( Amer) Est GFR (Non-Af Amer) Random Glucose Calcium Total Bilirubin 0.8 Direct Bilirubin 0.3 AST 30 ALT 35 Alkaline Phosphatase 58 Ammonia < 9 L Total Protein 7.2 Albumin 4.1 Globulin 3.2 Albumin/Globulin Ratio 1.3 Triglycerides Cholesterol LDL Cholesterol Direct HDL Cholesterol Amylase 79 Lipase 101 Prostate Specific Ag Vitamin B12 Thyroxine (T4) TSH 3rd Generation Urine Color Urine Clarity Urine pH Ur Specific [place] Urine Protein Urine Glucose (UA) Urine Ketones Urine Blood Urine Nitrate Urine Bilirubin Urine Urobilinogen Ur Leukocyte Esterase Urine RBC (Auto) Urine Microscopic WBC Urine Bacteria Urine Opiates Screen Urine Methadone Screen Ur Barbiturates Screen Ur Phencyclidine Scrn Ur Amphetamines Screen U Benzodiazepines Scrn U Oth Cocaine Metabols U Cannabinoids Screen Alcohol, Quantitative Blood Type Antibody Screen BBK History Checked reviewed J.P. - EKG Data EKG comments: reviewed J.P. - Impressions Impression: Echo: Reviewed J.P. - Imaging and Cardiology CT scan - abdomen Status: Report reviewed by me (Ryan) CT scan - pelvis Status: Report reviewed by me (Ryan) Additional comment: Elbow X-Ray and Shoulder X-Ray reviewed JVishal Assessment & Plan (1) Status post fall Status: Acute Priority: High (2) Abrasion, multiple sites Status: Acute Priority: High (3) Altered mental status Status: Acute Priority: High (4) Aortic stenosis Status: Acute (5) Mitral regurgitation Status: Acute (6) Bladder wall thickening Status: Chronic (7) Dyslipidemia Status: Chronic - Assessment and Plan (Free Text) Plan: Carotid & Vertebral U-S, Brain MRI, Ecotrin, Lovenox, Norvsc, Folic Acid, Ativan , Lipitor and rest of Tx, Neuro, Cardiology and Urology consult. - Date & Time Date: 09/30/17 Time: 12:50
--- NOTE | 2017-09-30 16:53 | CP.PCM.CON ---
History of Present Illness - History of Present Illness History of Present Illness: 86 Y/O EXAMINED WITH AT BEDSIDE. PT DENIES LOC. PER PT WAS SEATED ON GROUND AND TOPPLED SIDEWAYS. SHE STATES HE HIT HIS HEAD BUT DID NOT LOSE CONSCIOUSNESS. PT DENIES LH, DIZZINESS, BLURRY VISION, CP, SOB, PALP. PT DENIES HX OF CAD OR HEART DISEASE. STATES PT HAS BEEN CONFUSED. PT HAS 3/6 SM. LUNGS ARE CTA, NO EDEMA. NO ARRYTHMIAS ON TELE. ECHO REVEALS MILD TO MOD WITH CALCIFIED LEAFLETS. MILD MR WITH MAC. NORMAL WALL MOTIONS. Review of Systems - Constitutional Constitutional: As Per HPI, Frequent Falls. absent: Anorexia, Chills, Daytime Sleepiness, Excessive Sweating, Fatigue, Fever, Headache, Increased Appetite, Lethargy, Malaise, Night Sweats, Snoring, Sleep Apnea, Weight Gain, Weight Loss , Weakness, Other - EENT Eyes: As Per HPI. absent: Blind Spots, Blurred Vision, Change in Vision, Decreased Night Vision, Diplopia, Discharge, Dry Eye, Exophthalmos, Floaters, Irritation, Itchy Eyes, Loss of Peripheral Vision, Pain, Photophobia, Requires Corrective Lenses, Sees Flashes, Spots in Vision, Tunnel Vision, Other Visual Disturbances, Loss of Vision, Other Ears: As Per HPI. absent: Decreased Hearing, Ear Discharge, Ear Pain, Tinnitus , Abnormal Hearing, Disequilibrium, Dizziness, Other Nose/Mouth/Throat: As Per HPI. absent: Epistaxis, Nasal Congestion, Nasal Discharge, Nasal Obstruction, Nasal Trauma, Nose Pain, Post Nasal Drip, Sinus Pain, Sinus Pressure, Bleeding Gums, Change in Voice, Dental Pain, Dry Mouth, Dysphagia, Halitosis, Hoarsness, Lip Swelling, Mouth Lesions, Mouth Pain, Odynophagia, Sore Throat, Throat Swelling, Tongue Swelling, Facial Pain, Neck Pain, Neck Mass, Other - Cardiovascular Cardiovascular: As Per HPI. absent: Acrocyanosis, Chest Pain, Chest Pain at Rest, Chest Pain with Activity, Claudication, Diaphoresis, Dyspnea, Dyspnea on Exertion, Edema, Irregular Heart Rhythm, Pain Radiating to Arm/Neck/Jaw, Leg Edema, Leg Ulcers, Lightheadedness, Orthopnea, Palpitations, Paroxysmal Nocturnal Dyspnea, Pedal Edema, Radiating Pain, Rapid Heart Rate, Slow Heart Rate, Syncope, Other - Respiratory Respiratory: As Per HPI. absent: Cough, Dyspnea, Hemoptysis, Dyspnea on Exertion, Wheezing, Snoring, Stridor, Pain on Inspiration, Chest Congestion, Excessive Mucous Production, Change in Mucous Color, Pain with Coughing, Other - Gastrointestinal Gastrointestinal: As Per HPI. absent: Abdominal Pain, Belching, Bloating, Change in Bowel Habits, Change in Stool Character, Coffee Ground Emesis, Constipation, Cramping, Diarrhea, Dyspepsia, Dysphagia, Early Satiety, Excessive Flatus, Fecal Incontinence, Heartburn, Hematemesis, Hematochezia, Loose Stools, Melena, Nausea, Odynophagia, Temesmus, Vomiting, Other - Genitourinary Genitourinary: As Per HPI. absent: Change in Urinary Stream, Difficulty Urinating, Dysuria, Flank Pain, Hematuria, Pyuria, Nocturia, Urinary Incontinence, Urinary Frequency, Urinary Hesitance, Urinary Urgency, Voiding Freq/Small Amts, Freq UTI, Hx Renal/Bladder Calculi, Hx /Renal Surgery, Bladder Distension, Other - Musculoskeletal Musculoskeletal: As Per HPI. absent: Abnormal Gait, Arthralgias, Atrophy, Back Pain, Deformity, Joint Swelling, Limited Range of Motion, Loss of Height, Muscle Cramps, Muscle Weakness, Myalgias, Neck Pain, Numbness, Radiating Pain into Limb, Stiffness, Tingling, Other - Integumentary Integumentary: As Per HPI. absent: Acne, Alopecia, Bleeding Lesions, Change in Hair, Change in Nails, Change in Pigmentation, Changing Lesions, Dry Skin, Erythema, Furuncle, Hirsutism, Lesions, New Lesions, Non-Healing Lesions, Photosensitivity, Pruritus, Rash, Skin Pain, Skin Ulcer, Sores, Striae, Swelling , Unusual Bruising, Wounds, Jaundice, Other - Neurological Neurological: As Per HPI, Confusion, Frequent Falls. absent: Abnormal Gait, Abnormal Hearing, Abnormal Movements, Abnormal Speech, Behavioral Changes, Burning Sensations, Convulsions, Disequilibrium, Dizziness, Numbness, Focal Weakness, Headaches, Lack of Coordination, Loss of Vision, Memory Loss, Paresthesias, Radicular Pain, Restless Legs, Sensory Deficit, Syncope, Tingling , Tremor, Vertigo, Weakness, Other Visual Disturbances, Other - Psychiatric Psychiatric: As Per HPI. absent: Abnormal Sleep Pattern, Anhedonia, Anxiety, Auditory Hallucinations, Behavioral Changes, Change in Appetite, Change in Libido, Confusion, Depression, Difficulty Concentrating, Hallucinations, Homicidal Ideation, Hopelessness, Irritability, Memory Loss, Mood Swings, Panic Attacks, Paranoia, Suicidal Ideation, Visual Hallucinations, Tactile Hallucinations, Other - Endocrine Endocrine: As Per HPI. absent: Change in Body Appearance, Change in Libido, Cold Intolorance, Deepening of Voice, Excessive Sweating, Fatigue, Flushing, Heat Intolorance, Increase in Ring/Shoe/Hat Size, Palpitations, Polydipsia, Polyphagia, Polyuria, Other - Hematologic/Lymphatic Hematologic: As Per HPI. absent: Easy Bleeding, Easy Bruising, Lymphadenopathy , Other Past Patient History - Past Medical History & Family History Past Medical History?: Yes - Past Social History Chewing Tobacco Use: No Cigar Use: No Alcohol: None (often) Drugs: Denies Home Situation {Lives}: Alone - CARDIAC Hx Hypercholesterolemia: Yes Hx Hypertension: Yes - PULMONARY Hx Respiratory Disorders: No - HEMATOLOGICAL/ONCOLOGICAL Hx Anemia: Yes - MUSCULOSKELETAL/RHEUMATOLOGICAL Hx Falls: Yes - GENITOURINARY/GYNECOLOGICAL Hx Genitourinary Disorders: Yes Other/Comment: BPH - PSYCHIATRIC Hx Substance Use: No - SURGICAL HISTORY Hx Surgeries: No - ANESTHESIA Hx Anesthesia: No Hx Anesthesia Reactions: No Meds Allergies/Adverse Reactions: Allergies Allergy/AdvReac Type Severity Reaction Status Date / Time No Known Allergies Allergy Verified 09/29/17 16:19 - Medications Medications: Current Medications Amlodipine Besylate (Norvasc) 5 mg PO DAILY [facility] Last Admin: 09/30/17 08:33 Dose: 5 mg Aspirin (Ecotrin) 81 mg PO DAILY [facility] Last Admin: 09/30/17 08:34 Dose: 81 mg Atorvastatin Calcium (Lipitor) 40 mg PO DAILY [facility] Last Admin: 09/30/17 08:34 Dose: 40 mg Enoxaparin Sodium (Lovenox) 40 mg SC DAILY [facility] PRN Reason: Protocol Folic Acid (Folic Acid) 1 mg PO DAILY [facility] Last Admin: 09/30/17 13:06 Dose: 1 mg Ramipril (Altace) 10 mg PO DAILY [facility] Last Admin: 09/30/17 08:34 Dose: 10 mg Tamsulosin HCl (Flomax) 0.4 mg PO DAILY [facility] Last Admin: 09/30/17 08:34 Dose: 0.4 mg Physical Exam - Constitutional Appears: Non-toxic - Head Exam Head Exam: ATRAUMATIC, NORMAL INSPECTION, NORMOCEPHALIC - Eye Exam Eye Exam: EOMI, Normal appearance, PERRL. absent: Conjunctival injection, Nystagmus, Periorbital swelling, Periorbital tenderness, Scleral icterus Pupil Exam: NORMAL ACCOMODATION, PERRL. absent: Fixed, Irregular, Miosis, Mydriatic, Unequal - ENT Exam ENT Exam: Mucous Membranes Moist, Normal Exam. absent: Mucous Membranes Dry, Normal External Ear Exam, Normal Oropharynx, TM's Normal Bilaterally - Neck Exam Neck exam: Positive for: Normal Inspection. Negative for: Full Rom, Lymphadenopathy, Meningismus, Tenderness, Thyromegaly - Respiratory Exam Respiratory Exam: Clear to Auscultation Bilateral, NORMAL BREATHING PATTERN. absent: Accessory Muscle Use, Chest Wall Tenderness, Decreased Breath Sounds, Prolonged Expiratory Phase, Rales, Rhonchi, Wheezes, Respiratory Distress, Stridor - Cardiovascular Exam Cardiovascular Exam: REGULAR RHYTHM, +S1, +S2, Systolic Murmur. absent: Bradycardia, Tachycardia, Clicks, Diastolic murmur, Gallop, Irregular Rhythm, JVD, RRR, Rubs, +S4 - GI/Abdominal Exam GI & Abdominal Exam: Normal Bowel Sounds, Soft. absent: Bruit, Diminished Bowel Sounds, Distended, Firm, Guarding, Hernia, Hyperactive Bowel Sounds, Hypoactive Bowel Sounds, Mass, Organomegaly, Pulsatile Mass, Rebound, Rigid, Tenderness - Rectal Exam Rectal Exam: Deferred - Extremities Exam Extremities exam: Positive for: normal inspection. Negative for: calf tenderness, full ROM, joint swelling, normal capillary refill, pedal edema, tenderness, pedal pulses present - Back Exam Back exam: NORMAL INSPECTION. absent: CVA tenderness (L), CVA tenderness (R), FULL ROM, muscle spasm, paraspinal tenderness, rash noted, tenderness, vertebral tenderness - Neurological Exam Neurological exam: Alert - Psychiatric Exam Psychiatric exam: Normal Affect, Normal Mood - Skin Skin Exam: Dry, Intact, Normal Color, Warm Results - Vital Signs Recent Vital Signs: Last Vital Signs Temp 98.1 F 09/30/17 16:17 Pulse 86 09/30/17 16:17 Resp 16 09/30/17 16:17 BP 122/84 09/30/17 16:17 Pulse Ox 97 09/30/17 16:17 - Labs Result Diagrams: 09/30/17 04:25 09/30/17 04:25 Labs: Laboratory Results - last 24 hr 09/29/17 09/29/17 09/29/17 18:15 18:45 18:45 WBC 9.9 RBC 4.38 L Hgb 13.9 Hct 41.9 MCV 95.7 H MCH 31.7 H MCHC 33.1 RDW 13.3 Plt Count 260 MPV 8.5 Neut % (Auto) 64.3 Lymph % (Auto) 25.1 [place] % (Auto) 9.5 Eos % (Auto) 0.4 Baso % (Auto) 0.7 Neut # 6.3 Lymph # 2.5 [place] # 0.9 H Eos # 0.0 Baso # 0.1 PT INR APTT Sodium 141 Potassium 3.1 L Chloride 97 L Carbon Dioxide 30 Anion Gap 17 BUN 19 Creatinine 1.1 Est GFR ( Amer) > 60 Est GFR (Non-Af Amer) > 60 Random Glucose 112 H Calcium 10.0 Total Bilirubin Direct Bilirubin AST ALT Alkaline Phosphatase Ammonia Total Protein Albumin Globulin Albumin/Globulin Ratio Triglycerides Cholesterol LDL Cholesterol Direct HDL Cholesterol Amylase Lipase Prostate Specific Ag Vitamin B12 Thyroxine (T4) TSH 3rd Generation Urine Color Urine Clarity Urine pH Ur Specific [place] Urine Protein Urine Glucose (UA) Urine Ketones Urine Blood Urine Nitrate Urine Bilirubin Urine Urobilinogen Ur Leukocyte Esterase Urine RBC (Auto) Urine Microscopic WBC Urine Bacteria Urine Opiates Screen Urine Methadone Screen Ur Barbiturates Screen Ur Phencyclidine Scrn Ur Amphetamines Screen U Benzodiazepines Scrn U Oth Cocaine Metabols U Cannabinoids Screen Alcohol, Quantitative < 10 Blood Type A POSITIVE Antibody Screen Negative BBK History Checked No verified bt 09/29/17 09/29/17 09/30/17 18:45 18:45 01:08 WBC RBC Hgb Hct MCV MCH MCHC RDW Plt Count MPV Neut % (Auto) Lymph % (Auto) [place] % (Auto) Eos % (Auto) Baso % (Auto) Neut # Lymph # [place] # Eos # Baso # PT 10.9 INR 1.0 APTT 27.1 Sodium Potassium Chloride Carbon Dioxide Anion Gap BUN Creatinine Est GFR ( Amer) Est GFR (Non-Af Amer) Random Glucose Calcium Total Bilirubin Direct Bilirubin AST ALT Alkaline Phosphatase Ammonia Total Protein Albumin Globulin Albumin/Globulin Ratio Triglycerides Cholesterol LDL Cholesterol Direct HDL Cholesterol Amylase Lipase Prostate Specific Ag Vitamin B12 Thyroxine (T4) TSH 3rd Generation Urine Color Yellow Urine Clarity Slighty-cloudy Urine pH 7.0 Ur Specific [place] 1.015 Urine Protein Negative Urine Glucose (UA) Neg Urine Ketones Negative Urine Blood Negative Urine Nitrate Negative Urine Bilirubin Negative Urine Urobilinogen 0.2-1.0 Ur Leukocyte Esterase Neg Urine RBC (Auto) 3 Urine Microscopic WBC 2 Urine Bacteria Rare Urine Opiates Screen Negative Urine Methadone Screen Negative Ur Barbiturates Screen Negative Ur Phencyclidine Scrn Negative Ur Amphetamines Screen Negative U Benzodiazepines Scrn Negative U Oth Cocaine Metabols Negative U Cannabinoids Screen Negative Alcohol, Quantitative Blood Type Antibody Screen BBK History Checked 09/30/17 09/30/17 09/30/17 04:25 04:25 04:25 WBC 8.0 RBC 3.92 L Hgb 12.4 Hct 37.2 MCV 95.0 H MCH 31.7 H MCHC 33.4 RDW 12.9 Plt Count 208 MPV Neut % (Auto) Lymph % (Auto) [place] % (Auto) Eos % (Auto) Baso % (Auto) Neut # Lymph # [place] # Eos # Baso # PT 11.4 INR 1.0 APTT 26.2 Sodium 141 Potassium 3.5 L Chloride 102 Carbon Dioxide 28 Anion Gap 15 BUN 16 Creatinine 1.0 Est GFR ( Amer) > 60 Est GFR (Non-Af Amer) > 60 Random Glucose 111 H Calcium 9.3 Total Bilirubin 0.8 Direct Bilirubin AST 29 ALT 34 Alkaline Phosphatase 58 Ammonia Total Protein 7.0 Albumin 3.9 Globulin 3.1 Albumin/Globulin Ratio 1.3 Triglycerides 204 H Cholesterol 235 H LDL Cholesterol Direct 136 H HDL Cholesterol 64 Amylase Lipase Prostate Specific Ag 7.27 H Vitamin B12 319 Thyroxine (T4) 8.23 TSH 3rd Generation 1.58 Urine Color Urine Clarity Urine pH Ur Specific [place] Urine Protein Urine Glucose (UA) Urine Ketones Urine Blood Urine Nitrate Urine Bilirubin Urine Urobilinogen Ur Leukocyte Esterase Urine RBC (Auto) Urine Microscopic WBC Urine Bacteria Urine Opiates Screen Urine Methadone Screen Ur Barbiturates Screen Ur Phencyclidine Scrn Ur Amphetamines Screen U Benzodiazepines Scrn U Oth Cocaine Metabols U Cannabinoids Screen Alcohol, Quantitative Blood Type Antibody Screen BBK History Checked 09/30/17 09/30/17 09/30/17 15:02 15:02 15:02 WBC RBC Hgb Hct MCV MCH MCHC RDW Plt Count MPV Neut % (Auto) Lymph % (Auto) [place] % (Auto) Eos % (Auto) Baso % (Auto) Neut # Lymph # [place] # Eos # Baso # PT INR APTT Sodium Potassium Chloride Carbon Dioxide Anion Gap BUN Creatinine Est GFR ( Amer) Est GFR (Non-Af Amer) Random Glucose Calcium Total Bilirubin 0.8 Direct Bilirubin 0.3 AST 30 ALT 35 Alkaline Phosphatase 58 Ammonia < 9 L Total Protein 7.2 Albumin 4.1 Globulin 3.2 Albumin/Globulin Ratio 1.3 Triglycerides Cholesterol LDL Cholesterol Direct HDL Cholesterol Amylase 79 Lipase 101 Prostate Specific Ag Vitamin B12 Thyroxine (T4) TSH 3rd Generation Urine Color Urine Clarity Urine pH Ur Specific [place] Urine Protein Urine Glucose (UA) Urine Ketones Urine Blood Urine Nitrate Urine Bilirubin Urine Urobilinogen Ur Leukocyte Esterase Urine RBC (Auto) Urine Microscopic WBC Urine Bacteria Urine Opiates Screen Urine Methadone Screen Ur Barbiturates Screen Ur Phencyclidine Scrn Ur Amphetamines Screen U Benzodiazepines Scrn U Oth Cocaine Metabols U Cannabinoids Screen Alcohol, Quantitative Blood Type Antibody Screen BBK History Checked Assessment & Plan (1) Altered mental status Status: Acute (2) Fall Status: Acute (3) Head injury Status: Acute (4) Aortic stenosis Status: Acute (5) Mitral regurgitation Status: Acute - Assessment and Plan (Free Text) Plan: ETIOLOGY OF MENTAL STATUS CHANGES UNLIKELY CARDIAC. WOULD AVOID DEHYDRATION GIVEN . MONITOR LYTES. NEURO EVAL IN PROGRESS. 45 MIN TOTAL CARE TIME.
[2017-09-30] MEDS ORDERED: Gadodiamide 287 MG/ML VIAL (15ML) IV ONE (18:04)
--- NOTE | 2017-09-30 18:53 | CP.PCM.PN ---
Subjective - Date & Time of Evaluation Date of Evaluation: 09/30/17 Time of Evaluation: 18:53 - Subjective Subjective: 86 year old male admitted after fall wit some changes in mentation. apt has ct which shows bladder wall thickiining of unknown sig. pt is in monitored unit. Suggest. Pt should be REfered to our officce for cystoscopy and possible Bx with formal Med clearence(including cardiac and neurological eval) when you think pt can procede. Desirae Objective - Vital Signs/Intake and Output Vital Signs (last 24 hours): Temp Pulse Resp BP Pulse Ox 98.1 F 86 16 122/84 97 09/30/17 16:17 09/30/17 16:17 09/30/17 16:17 09/30/17 16:17 09/30/17 16:17 - Medications Medications: Current Medications Amlodipine Besylate (Norvasc) 5 mg PO DAILY [facility] Last Admin: 09/30/17 08:33 Dose: 5 mg Aspirin (Ecotrin) 81 mg PO DAILY [facility] Last Admin: 09/30/17 08:34 Dose: 81 mg Atorvastatin Calcium (Lipitor) 40 mg PO DAILY [facility] Last Admin: 09/30/17 08:34 Dose: 40 mg Enoxaparin Sodium (Lovenox) 40 mg SC DAILY [facility] PRN Reason: Protocol Last Admin: 09/30/17 15:00 Dose: 40 mg Folic Acid (Folic Acid) 1 mg PO DAILY [facility] Last Admin: 09/30/17 13:06 Dose: 1 mg Ramipril (Altace) 10 mg PO DAILY [facility] Last Admin: 09/30/17 08:34 Dose: 10 mg Tamsulosin HCl (Flomax) 0.4 mg PO DAILY [facility] Last Admin: 09/30/17 08:34 Dose: 0.4 mg - Labs Labs: 09/30/17 04:25 09/30/17 04:25 PT 11.4 Seconds (9.8-13.1) 09/30/17 04:25 INR 1.0 (0.9-1.2) 09/30/17 04:25 APTT 26.2 Seconds (25.6-37.1) 09/30/17 04:25
[2017-10-01 05:51] LABS: HEMOGLOBIN 12.5 g/dL (12.0-18.0); MEAN CORPUSCULAR HEMOGLOBIN 31.4 pg (27.0-31.0); MEAN CORPUSCULAR HGB CONC 33.1 g/dL (33.0-37.0); RED CELL DISTRIBUTION WIDTH 13.1 % (11.5-14.5); WHITE BLOOD COUNT 8.6 K/uL (4.8-10.8)
[2017-10-01 05:59] LABS: BLOOD UREA NITROGEN 13 mg/dl (9-20); CALCIUM 9.3 mg/dL (8.4-10.2); GFR AFRICAN-AMERICAN > 60; GFR NON-AFRICAN AMERICAN > 60
[2017-10-01] MEDS: Enoxaparin 40 mg Syringe SC SCH (08:31)
[2017-10-01] MEDS ORDERED: Gadodiamide 287 MG/ML VIAL (15ML) IV ONE (09:32)
--- NOTE | 2017-10-01 10:35 | CP.PCM.PN ---
Subjective - Date & Time of Evaluation Date of Evaluation: 10/01/17 Time of Evaluation: 10:32 - Subjective Subjective: Mr. Almonte was seen and examined at the bedside. He is awake with episode of confusion. He is unable to follow simple commands or answer few questions, but moves all his extremities spontaneously. He remains on 1:1 sitter for patient safety. There was no untoward events overnight. Objective - Vital Signs/Intake and Output Vital Signs (last 24 hours): Temp Pulse Resp BP Pulse Ox 97.3 F L 93 H 20 138/88 97 10/01/17 08:14 10/01/17 08:31 10/01/17 08:14 10/01/17 08:32 10/01/17 08:14 - Medications Medications: Current Medications Amlodipine Besylate (Norvasc) 5 mg PO DAILY [facility] Last Admin: 10/01/17 08:31 Dose: 5 mg Aspirin (Ecotrin) 81 mg PO DAILY [facility] Last Admin: 10/01/17 08:31 Dose: 81 mg Atorvastatin Calcium (Lipitor) 40 mg PO DAILY [facility] Last Admin: 10/01/17 08:32 Dose: 40 mg Enoxaparin Sodium (Lovenox) 40 mg SC DAILY [facility] PRN Reason: Protocol Last Admin: 10/01/17 08:31 Dose: 40 mg Folic Acid (Folic Acid) 1 mg PO DAILY [facility] Last Admin: 10/01/17 08:32 Dose: 1 mg Lorazepam (Ativan) 1 mg IVP Q6 PRN PRN Reason: Agitation Last Admin: 10/01/17 03:38 Dose: 1 mg Ramipril (Altace) 10 mg PO DAILY [facility] Last Admin: 10/01/17 08:32 Dose: 10 mg Tamsulosin HCl (Flomax) 0.4 mg PO DAILY [facility] Last Admin: 10/01/17 08:32 Dose: 0.4 mg - Labs Labs: 10/01/17 04:15 10/01/17 04:15 PT 11.4 Seconds (9.8-13.1) 09/30/17 04:25 INR 1.0 (0.9-1.2) 09/30/17 04:25 APTT 26.2 Seconds (25.6-37.1) 09/30/17 04:25 - Constitutional Appears: No Acute Distress - Head Exam Head Exam: NORMAL INSPECTION - Neurological Exam Neurological Exam: Awake Additional comments: He is confused, moves all his extremities spontaneously. Assessment and Plan (1) Syncope Assessment & Plan: Case discussed with Dr. Kapadia, continue all current medical regimen. Pending MRI of the brain. Status: Acute
--- NOTE | 2017-10-01 11:51 | US ---
PROCEDURE: Duplex ultrasound of the carotid and vertebral arteries. HISTORY: syncope, s/p fall COMPARISON: None available. TECHNIQUE: Grayscale and duplex Doppler evaluation of the cervical carotid and vertebral arteries were performed. The common carotid, carotid bifurcations and cervical ICA and proximal ECA were evaluated. The vertebral arteries were evaluated for gross patency and direction. FINDINGS: There are calcified atherosclerotic plaques and intimal thickening in the carotid bulbs. There is also intimal thickening in the internal carotid arteries. RIGHT CAROTID ARTERIES: Common Carotid Artery: Normal. Maximal flow velocity of 43.8 cm/s. Carotid Bifurcation: Normal. Internal Carotid Artery:Normal. Maximal flow velocity of 45.1 cm/s. External Carotid Artery (proximal branches): Normal. Maximal flow velocity of 92.5 cm/s. ICA/CCA Ratio: 1.1 LEFT CAROTID ARTERIES: Common Carotid Artery: Normal. Maximal flow velocity of 53.4 cm/s. Carotid Bifurcation: Normal. Internal Carotid Artery:Normal. Maximal flow velocity of 79.4 cm/s. External Carotid Artery (proximal branches): Normal. Maximal flow velocity of 72.6 cm/s. ICA/CCA Ratio: 1.5 VERTEBRAL ARTERIES: Right Vertebral Artery: Patent. Antegrade flow. Left Vertebral Artery: Patent. Antegrade flow. OTHER FINDINGS: None. IMPRESSION: 1. No evidence of hemodynamically significant stenosis in the internal carotid arteries by peak systolic velocity criteria. 2. Patent vertebral arteries with antegrade flow.
--- NOTE | 2017-10-01 12:40 | RAD ---
HISTORY: Altered mental status COMPARISON: No prior. FINDINGS: LUNGS: The lungs are clear. PLEURA: No significant pleural effusion identified, no pneumothorax apparent. CARDIOVASCULAR: Normal. OSSEOUS STRUCTURES: No significant abnormalities. VISUALIZED UPPER ABDOMEN: Normal. OTHER FINDINGS: None. IMPRESSION: No active pulmonary disease.
--- NOTE | 2017-10-01 13:04 | CP.PCM.PN ---
Subjective - Date & Time of Evaluation Date of Evaluation: 10/01/17 Time of Evaluation: 11:00 - Subjective Subjective: F/U Fall/Trauma. Pt agitated at times. Objective - Vital Signs/Intake and Output Vital Signs (last 24 hours): Temp Pulse Resp BP Pulse Ox 97.8 F 76 20 153/90 H 96 10/01/17 12:00 10/01/17 12:00 10/01/17 12:00 10/01/17 12:00 10/01/17 12:00 - Medications Medications: Current Medications Amlodipine Besylate (Norvasc) 5 mg PO DAILY [facility] Last Admin: 10/01/17 08:31 Dose: 5 mg Aspirin (Ecotrin) 81 mg PO DAILY [facility] Last Admin: 10/01/17 08:31 Dose: 81 mg Atorvastatin Calcium (Lipitor) 40 mg PO DAILY [facility] Last Admin: 10/01/17 08:32 Dose: 40 mg Enoxaparin Sodium (Lovenox) 40 mg SC DAILY [facility] PRN Reason: Protocol Last Admin: 10/01/17 08:31 Dose: 40 mg Folic Acid (Folic Acid) 1 mg PO DAILY [facility] Last Admin: 10/01/17 08:32 Dose: 1 mg Lorazepam (Ativan) 1 mg IVP Q6 PRN PRN Reason: Agitation Last Admin: 10/01/17 03:38 Dose: 1 mg Ramipril (Altace) 10 mg PO DAILY [facility] Last Admin: 10/01/17 08:32 Dose: 10 mg Tamsulosin HCl (Flomax) 0.4 mg PO DAILY [facility] Last Admin: 10/01/17 08:32 Dose: 0.4 mg - Labs Labs: 10/01/17 04:15 10/01/17 04:15 PT 11.4 Seconds (9.8-13.1) 09/30/17 04:25 INR 1.0 (0.9-1.2) 09/30/17 04:25 APTT 26.2 Seconds (25.6-37.1) 09/30/17 04:25 - Constitutional Appears: No Acute Distress - Head Exam Head Exam: NORMAL INSPECTION - Eye Exam Eye Exam: PERRL - ENT Exam ENT Exam: Normal Exam - Neck Exam Neck Exam: Normal Inspection - Respiratory Exam Respiratory Exam: NORMAL BREATHING PATTERN - Cardiovascular Exam Cardiovascular Exam: REGULAR RHYTHM - GI/Abdominal Exam GI & Abdominal Exam: Soft, Normal Bowel Sounds Additional comments: Abrasion L flank - Extremities Exam Additional comments: Abrasion L arm, L elbow. - Back Exam Back Exam: NORMAL INSPECTION - Neurological Exam Neurological Exam: Awake, CN II-XII Intact Additional comments: Confused, moves all extremities, no gross focal motor/sensory deficit. - Psychiatric Exam Psychiatric exam: Normal Mood - Skin Skin Exam: Abrasion (L flank, LUE, L elbow.) Assessment and Plan (1) Status post fall Status: Acute (2) Abrasion, multiple sites Status: Acute (3) Altered mental status Status: Acute (4) Aortic stenosis Status: Acute (5) Mitral regurgitation Status: Acute (6) Bladder wall thickening Status: Chronic (7) Dyslipidemia Status: Acute - Assessment and Plan (Free Text) Plan: Still pending Brain MRI, cleared by Cardiology, continue Lovenox and current Tx.
--- NOTE | 2017-10-01 13:53 | MRI ---
PROCEDURE: MRI BRAIN WITHOUT CONTRAST HISTORY: Syncope, s/p fall COMPARISON: Noncontrast head CT from 09/29/2017. TECHNIQUE: Multiplanar, multisequence MR images of the brain were obtained without intravenous contrast enhancement. FINDINGS: HEMORRHAGE: None DWI: No evidence of an acute or early subacute infarction. BRAIN PARENCHYMA: There are severe chronic microangiopathic changes. There is no mass, mass effect or abnormal extra-axial fluid collection. The midline sagittal structures are normal. There is no territorial infarction. VENTRICLES: There is moderate age-related global parenchymal volume loss and proportionate enlargement of the ventricles and cortical sulci. . CRANIUM: There is normal bone marrow signal pattern. ORBITS: Grossly unremarkable. PARANASAL SINUSES/MASTOIDS: There is mild mucosal thickening in the paranasal sinuses. The mastoid air cells are predominantly clear. VASCULAR SYSTEM: There are normal signal voids in the larger intracranial arteries. OTHER FINDINGS: None. IMPRESSION: No acute intracranial abnormality. Severe chronic microangiopathic changes and moderate age-related global parenchymal volume loss.
--- NOTE | 2017-10-02 10:31 | CP.PCM.PN ---
<Yen Metcalf - Last Filed: 10/02/17 10:27> Subjective - Date & Time of Evaluation Date of Evaluation: 10/02/17 Time of Evaluation: 10:27 - Subjective Subjective: Mr. Simpson was seen and examined at the bedside. He is alert with episode of confusion. He does know he is in a hospital, but unable to verbalize time or person. He is able to inform the staff his immediate need such as bathroom, or drinking water. He is able to answer few questions with appropriate answer. He denies any headache, blurred vision. He is unable to follows simple commands, just wanting to go to sleep. He remains with a 1:1 sitter for patient safety. According to the staff he is able to stand up with steady gait and able to hold his urinal with both hands. There was no untoward events overnight. Objective - Vital Signs/Intake and Output Vital Signs (last 24 hours): Temp Pulse Resp BP Pulse Ox 97.6 F 93 H 18 151/84 H 97 10/02/17 09:00 10/02/17 09:00 10/02/17 09:00 10/02/17 09:00 10/02/17 09:00 - Medications Medications: Current Medications Amlodipine Besylate (Norvasc) 5 mg PO DAILY [facility] Last Admin: 10/01/17 08:31 Dose: 5 mg Aspirin (Ecotrin) 81 mg PO DAILY [facility] Last Admin: 10/01/17 08:31 Dose: 81 mg Atorvastatin Calcium (Lipitor) 40 mg PO DAILY [facility] Last Admin: 10/01/17 08:32 Dose: 40 mg Enoxaparin Sodium (Lovenox) 40 mg SC DAILY [facility] PRN Reason: Protocol Last Admin: 10/01/17 08:31 Dose: 40 mg Folic Acid (Folic Acid) 1 mg PO DAILY [facility] Last Admin: 10/01/17 08:32 Dose: 1 mg Lorazepam (Ativan) 1 mg IVP Q6 PRN PRN Reason: Agitation Last Admin: 10/01/17 03:38 Dose: 1 mg Ramipril (Altace) 10 mg PO DAILY [facility] Last Admin: 10/01/17 08:32 Dose: 10 mg Tamsulosin HCl (Flomax) 0.4 mg PO DAILY [facility] Last Admin: 10/01/17 08:32 Dose: 0.4 mg - Labs Labs: 10/01/17 04:15 10/01/17 04:15 PT 11.4 Seconds (9.8-13.1) 09/30/17 04:25 INR 1.0 (0.9-1.2) 09/30/17 04:25 APTT 26.2 Seconds (25.6-37.1) 09/30/17 04:25 - Constitutional Appears: No Acute Distress, Unkempt - Head Exam Head Exam: NORMAL INSPECTION - Neurological Exam Neurological Exam: Alert, Awake Additional comments: He has episode of confusion and refused to participate during assessment. He is able to stand up at the edge of the bed in steady gait and able to hold the urinal . Assessment and Plan (1) Syncope Assessment & Plan: Case discussed with Dr. Kapadia, continue all current medical regimen. If the mental status of the patient change, to do a stat CT of the head without contrast. Status: Acute <Brijesh Kapadiami - Last Filed: 10/02/17 10:49> Subjective - Subjective Subjective: IN addition, we will order EEG and MRi brain to further evaluate this encephalopathy. Objective - Vital Signs/Intake and Output Vital Signs (last 24 hours): Temp Pulse Resp BP Pulse Ox 97.6 F 93 H 18 112/73 97 10/02/17 09:00 10/02/17 09:00 10/02/17 09:00 10/02/17 10:37 10/02/17 09:00 - Medications Medications: Current Medications Amlodipine Besylate (Norvasc) 5 mg PO DAILY [facility] Last Admin: 10/02/17 10:41 Dose: 5 mg Aspirin (Ecotrin) 81 mg PO DAILY [facility] Last Admin: 10/02/17 10:40 Dose: 81 mg Atorvastatin Calcium (Lipitor) 40 mg PO DAILY [facility] Last Admin: 10/02/17 10:41 Dose: 40 mg Enoxaparin Sodium (Lovenox) 40 mg SC DAILY [facility] PRN Reason: Protocol Last Admin: 10/02/17 10:41 Dose: 40 mg Folic Acid (Folic Acid) 1 mg PO DAILY [facility] Last Admin: 10/02/17 10:40 Dose: 1 mg Lorazepam (Ativan) 1 mg IVP Q6 PRN PRN Reason: Agitation Last Admin: 10/01/17 03:38 Dose: 1 mg Ramipril (Altace) 10 mg PO DAILY [facility] Last Admin: 10/02/17 10:37 Dose: 10 mg Tamsulosin HCl (Flomax) 0.4 mg PO DAILY [facility] Last Admin: 10/02/17 10:40 Dose: 0.4 mg - Labs Labs: 10/01/17 04:15 10/01/17 04:15 PT 11.4 Seconds (9.8-13.1) 09/30/17 04:25 INR 1.0 (0.9-1.2) 09/30/17 04:25 APTT 26.2 Seconds (25.6-37.1) 09/30/17 04:25
[2017-10-02] MEDS: Enoxaparin 40 mg Syringe SC SCH (10:41)
--- NOTE | 2017-10-02 13:52 | CP.PCM.PN ---
Subjective - Date & Time of Evaluation Date of Evaluation: 10/02/17 Time of Evaluation: 09:20 - Subjective Subjective: F/U S/P Fall/trauma Calm , on 1:1 , Patient's at bedside Objective - Vital Signs/Intake and Output Vital Signs (last 24 hours): Temp Pulse Resp BP Pulse Ox 98.2 F 101 H 20 109/72 95 10/02/17 12:28 10/02/17 12:28 10/02/17 12:28 10/02/17 12:28 10/02/17 12:28 - Medications Medications: Current Medications Amlodipine Besylate (Norvasc) 5 mg PO DAILY [facility] Last Admin: 10/02/17 10:41 Dose: 5 mg Aspirin (Ecotrin) 81 mg PO DAILY [facility] Last Admin: 10/02/17 10:40 Dose: 81 mg Atorvastatin Calcium (Lipitor) 40 mg PO DAILY [facility] Last Admin: 10/02/17 10:41 Dose: 40 mg Enoxaparin Sodium (Lovenox) 40 mg SC DAILY [facility] PRN Reason: Protocol Last Admin: 10/02/17 10:41 Dose: 40 mg Folic Acid (Folic Acid) 1 mg PO DAILY [facility] Last Admin: 10/02/17 10:40 Dose: 1 mg Lorazepam (Ativan) 1 mg IVP Q6 PRN PRN Reason: Agitation Last Admin: 10/01/17 03:38 Dose: 1 mg Ramipril (Altace) 10 mg PO DAILY [facility] Last Admin: 10/02/17 10:37 Dose: 10 mg Tamsulosin HCl (Flomax) 0.4 mg PO DAILY [facility] Last Admin: 10/02/17 10:40 Dose: 0.4 mg - Labs Labs: 10/01/17 04:15 10/01/17 04:15 PT 11.4 Seconds (9.8-13.1) 09/30/17 04:25 INR 1.0 (0.9-1.2) 09/30/17 04:25 APTT 26.2 Seconds (25.6-37.1) 09/30/17 04:25 - Constitutional Appears: No Acute Distress - Head Exam Head Exam: NORMAL INSPECTION - Eye Exam Eye Exam: PERRL - ENT Exam ENT Exam: Normal Exam - Neck Exam Neck Exam: Normal Inspection - Respiratory Exam Respiratory Exam: NORMAL BREATHING PATTERN - Cardiovascular Exam Cardiovascular Exam: REGULAR RHYTHM - GI/Abdominal Exam GI & Abdominal Exam: Soft, Normal Bowel Sounds Additional comments: Abrasion L flank - Extremities Exam Additional comments: Abrasion L elbow, L arm - Neurological Exam Neurological Exam: Awake, CN II-XII Intact Additional comments: Confused, moves all extremities, no gross focal motor/sensory deficit. 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
[2017-10-03] MEDS: Enoxaparin 40 mg Syringe SC SCH (09:19)
--- NOTE | 2017-10-03 11:54 | CP.PCM.PN ---
Subjective - Date & Time of Evaluation Date of Evaluation: 10/03/17 Time of Evaluation: 11:51 - Subjective Subjective: Mr. Almonte was seen and examined at the bedside. He is more alert, oriented to place, but not time and person. He is able to participate in a pleasant conversation and answer few questions appropriately. He is able to follow simple commands. According to the , he is more alert today in comparison from previous examination. He is able to move his neck without any pain or discomfort. He remains on 1:1 sitter for patient safety. There was no untoward events overnight. Objective - Vital Signs/Intake and Output Vital Signs (last 24 hours): Temp Pulse Resp BP Pulse Ox 98.0 F 76 18 129/79 97 10/03/17 08:00 10/03/17 09:18 10/03/17 08:00 10/03/17 09:19 10/03/17 08:00 - Medications Medications: Current Medications Amlodipine Besylate (Norvasc) 5 mg PO DAILY [facility] Last Admin: 10/03/17 09:18 Dose: 5 mg Aspirin (Ecotrin) 81 mg PO DAILY [facility] Last Admin: 10/03/17 09:19 Dose: 81 mg Atorvastatin Calcium (Lipitor) 40 mg PO DAILY [facility] Last Admin: 10/03/17 09:18 Dose: 40 mg Enoxaparin Sodium (Lovenox) 40 mg SC DAILY [facility] PRN Reason: Protocol Last Admin: 10/03/17 09:19 Dose: 40 mg Folic Acid (Folic Acid) 1 mg PO DAILY [facility] Last Admin: 10/03/17 09:18 Dose: 1 mg Lorazepam (Ativan) 1 mg IVP Q6 PRN PRN Reason: Agitation Last Admin: 10/01/17 03:38 Dose: 1 mg Ramipril (Altace) 10 mg PO DAILY [facility] Last Admin: 10/03/17 09:19 Dose: 10 mg Tamsulosin HCl (Flomax) 0.4 mg PO DAILY [facility] Last Admin: 10/03/17 09:18 Dose: 0.4 mg - Labs Labs: 10/01/17 04:15 10/01/17 04:15 PT 11.4 Seconds (9.8-13.1) 09/30/17 04:25 INR 1.0 (0.9-1.2) 09/30/17 04:25 APTT 26.2 Seconds (25.6-37.1) 09/30/17 04:25 - Constitutional Appears: No Acute Distress - Head Exam Head Exam: NORMAL INSPECTION - Extremities Exam Extremities Exam: Full ROM, Normal Inspection - Neurological Exam Neurological Exam: Alert, Awake, CN II-XII Intact Neuro motor strength exam: Left Upper Extremity: 4, Right Upper Extremity: 4, Left Lower Extremity: 4, Right Lower Extremity: 4 Additional comments: Neurological improved from previous examination. Assessment and Plan (1) Syncope Assessment & Plan: Case discussed with Dr. Kapadia, continue all current medical regimen. Treat any underlying electrolyte imbalances. There is no new recommendations from neurology. Status: Acute
--- NOTE | 2017-10-03 12:18 | CP.PCM.CON ---
History of Present Illness - History of Present Illness History of Present Illness: Psychiatry consult for AMS CC: Fall HPI: 86 yo male w/ HTN, HLD, anemia, brought to ER [facility], [place] by EMS and accompany by for evaluation of head, L arm, L shoulder, L elbow and L flank injury s/p fall 2 days [employer] with no relief of pain. Patient denies any current psychiatric symptoms. denies that the patient has any acute psychiatric issues. No depression/anxiety/hallucinations/paranoia. Patient is not an acute danger to self or others. PMHx: HTN, HLD, Anemia, Falls PPHx: No past psychiatric history SHx: Lives w/ , retired from [employer]; no illicit drugs; no kids CT Abdomen/Pelv shows: Bladder wall thickening, enlarged prostate, mass in the bladder, gallstones. Elbow X-Ray: No acute Fx. [place] X-Ray: No acute Fx. Head CT: No acute intracranial hemorrhage. Echo: LVEF: 65-70%, moderate aortic stenosis, mild aortic regurgitation. MSE: A + O x 2, calm, cooperative, mood/affect- neutral, no AH/VH/SI/HI, no paranoia, no delusions, thought process- coherent, good eye contact, limited I/J Impression: AMS likely secondary to acute medical issues, not acute or chronic psychiatric issues. Patient and are not agreeable to treatment with psychiatric medications at this time. Patient is currently calm and cooperative w/o any behavioral disturbance. -No acute psychiatric medications or acute inpatient psychiatric admission indicated Past Patient History - Past Medical History & Family History Past Medical History?: Yes - Past Social History Smoking Status: Never Smoked Alcohol: None (often) Drugs: Denies Home Situation {Lives}: With Family - CARDIAC Hx Cardiac Disorders: Yes Hx Hypercholesterolemia: Yes Hx Hypertension: Yes - PULMONARY Hx Respiratory Disorders: No - HEENT Hx HEENT Problems: No - RENAL Hx Chronic Kidney Disease: No - ENDOCRINE/METABOLIC Hx Endocrine Disorders: No - HEMATOLOGICAL/ONCOLOGICAL Hx Blood Disorders: Yes Hx Anemia: Yes - INTEGUMENTARY Hx Dermatological Problems: No - MUSCULOSKELETAL/RHEUMATOLOGICAL Hx Musculoskeletal Disorders: Yes Hx Falls: Yes - GASTROINTESTINAL Hx Gastrointestinal Disorders: No - GENITOURINARY/GYNECOLOGICAL Hx Genitourinary Disorders: Yes Other/Comment: BPH - PSYCHIATRIC Hx Psychophysiologic Disorder: No Hx Substance Use: No - SURGICAL HISTORY Hx Surgeries: No - ANESTHESIA Hx Anesthesia: No Hx Anesthesia Reactions: No Meds Allergies/Adverse Reactions: Allergies Allergy/AdvReac Type Severity Reaction Status Date / Time No Known Allergies Allergy Verified 09/29/17 16:19 - Medications Medications: Current Medications Amlodipine Besylate (Norvasc) 5 mg PO DAILY [facility] Last Admin: 10/03/17 09:18 Dose: 5 mg Aspirin (Ecotrin) 81 mg PO DAILY [facility] Last Admin: 10/03/17 09:19 Dose: 81 mg Atorvastatin Calcium (Lipitor) 40 mg PO DAILY [facility] Last Admin: 10/03/17 09:18 Dose: 40 mg Enoxaparin Sodium (Lovenox) 40 mg SC DAILY [facility] PRN Reason: Protocol Last Admin: 10/03/17 09:19 Dose: 40 mg Folic Acid (Folic Acid) 1 mg PO DAILY [facility] Last Admin: 10/03/17 09:18 Dose: 1 mg Lorazepam (Ativan) 1 mg IVP Q6 PRN PRN Reason: Agitation Last Admin: 10/01/17 03:38 Dose: 1 mg Ramipril (Altace) 10 mg PO DAILY [facility] Last Admin: 10/03/17 09:19 Dose: 10 mg Tamsulosin HCl (Flomax) 0.4 mg PO DAILY [facility] Last Admin: 10/03/17 09:18 Dose: 0.4 mg Results - Vital Signs Recent Vital Signs: Last Vital Signs Temp 97.8 F 10/03/17 12:00 Pulse 98 H 10/03/17 12:00 Resp 18 10/03/17 12:00 BP 114/73 10/03/17 12:00 Pulse Ox 95 10/03/17 12:00 - Labs Result Diagrams: 10/01/17 04:15 10/01/17 04:15
--- NOTE | 2017-10-03 12:44 | CP.PCM.PN ---
Subjective - Date & Time of Evaluation Date of Evaluation: 10/03/17 Time of Evaluation: 11:50 - Subjective Subjective: F/U S/P Fall/trauma. Pt reported to be agitated last night, now awake, more alert and calm, remain in 1:1. Objective - Vital Signs/Intake and Output Vital Signs (last 24 hours): Temp Pulse Resp BP Pulse Ox 97.8 F 98 H 18 114/73 95 10/03/17 12:00 10/03/17 12:00 10/03/17 12:00 10/03/17 12:00 10/03/17 12:00 - Medications Medications: Current Medications Amlodipine Besylate (Norvasc) 5 mg PO DAILY [facility] Last Admin: 10/03/17 09:18 Dose: 5 mg Aspirin (Ecotrin) 81 mg PO DAILY [facility] Last Admin: 10/03/17 09:19 Dose: 81 mg Atorvastatin Calcium (Lipitor) 40 mg PO DAILY [facility] Last Admin: 10/03/17 09:18 Dose: 40 mg Enoxaparin Sodium (Lovenox) 40 mg SC DAILY [facility] PRN Reason: Protocol Last Admin: 10/03/17 09:19 Dose: 40 mg Folic Acid (Folic Acid) 1 mg PO DAILY [facility] Last Admin: 10/03/17 09:18 Dose: 1 mg Lorazepam (Ativan) 1 mg IVP Q6 PRN PRN Reason: Agitation Last Admin: 10/01/17 03:38 Dose: 1 mg Ramipril (Altace) 10 mg PO DAILY [facility] Last Admin: 10/03/17 09:19 Dose: 10 mg Tamsulosin HCl (Flomax) 0.4 mg PO DAILY [facility] Last Admin: 10/03/17 09:18 Dose: 0.4 mg - Labs Labs: 10/01/17 04:15 10/01/17 04:15 PT 11.4 Seconds (9.8-13.1) 09/30/17 04:25 INR 1.0 (0.9-1.2) 09/30/17 04:25 APTT 26.2 Seconds (25.6-37.1) 09/30/17 04:25 - Constitutional Appears: No Acute Distress - Head Exam Head Exam: NORMAL INSPECTION - Eye Exam Eye Exam: PERRL - ENT Exam ENT Exam: Normal Exam - Neck Exam Neck Exam: Normal Inspection - Respiratory Exam Respiratory Exam: NORMAL BREATHING PATTERN - Cardiovascular Exam Cardiovascular Exam: REGULAR RHYTHM - GI/Abdominal Exam GI & Abdominal Exam: Soft, Normal Bowel Sounds Additional comments: Mild abrasion L flank - Extremities Exam Additional comments: Mild abrasion L elbow, L arm. - Neurological Exam Neurological Exam: Awake Additional comments: Oriented x2, moves all extremities, no gross focal motor/sensory deficit. 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 Continue curent Tx.
--- NOTE | 2017-10-03 13:33 | PQF GENQUE ---
This form is a permanent part of the medical record 10/03/17 Dr. Phipps, Please clarify the etiology of the AMS after workup if known. Clarification of your documentation is requested to better reflect the severity of illness and intensity of treatment of your patient. Indicators present [] Specify: [] [] Specify: [] [] Specify: [] [] Specify: [] Location in the medical record that reflects the above clinical findings: [] Treatment Provided: [] PHYSICIAN'S RESPONSE Based on your medical judgment of the clinical indicators outlined above please clarify the following: [] Practitioner response [] If unable to determine, please check the box, sign and date. Present On Admission (POA) Indicator: [] Present at the time of admission [] Not present at the time of admission [] Clinically Undetermined In responding to this query, please exercise your independent professional judgment. The fact that a question is asked does not imply that any particular answer is desired or expected. Thank you for your clarification on this documentation. If you have any questions please call:ext [phone] * Thank you, Melida Hernandez RN CDMP MTDD
[2017-10-03 16:31] LABS: BLOOD UREA NITROGEN 19 mg/dl (9-20); CALCIUM 9.2 mg/dL (8.4-10.2); GFR AFRICAN-AMERICAN > 60; GFR NON-AFRICAN AMERICAN > 60
[2017-10-04] MEDS: Enoxaparin 40 mg Syringe SC SCH (09:03)
[2017-10-04 11:15] LABS: HEMOGLOBIN 11.9 g/dL (12.0-18.0); MEAN CELL VOLUME 99.2 fl (80.0-94.0); MEAN CORPUSCULAR HEMOGLOBIN 31.8 pg (27.0-31.0); MEAN CORPUSCULAR HGB CONC 32.1 g/dL (33.0-37.0); RBC 3.73 Mil/uL (4.40-5.90); RED CELL DISTRIBUTION WIDTH 13.8 % (11.5-14.5); WHITE BLOOD COUNT 5.6 K/uL (4.8-10.8)
[2017-10-04 12:20] VITALS: BP 124/74; PULSE 78; RESP 16; TEMP 98.4; O2SAT 97
--- NOTE | 2017-10-04 13:27 | CP.PCM.PN ---
Subjective - Date & Time of Evaluation Date of Evaluation: 10/04/17 Time of Evaluation: 11:30 - Subjective Subjective: F/U s/p Fall/Trauma. Pt with no A/D, calm, off 1:1. Objective - Vital Signs/Intake and Output Vital Signs (last 24 hours): Temp Pulse Resp BP Pulse Ox 98.4 F 78 16 124/74 97 10/04/17 12:19 10/04/17 12:19 10/04/17 12:19 10/04/17 12:19 10/04/17 12:19 - Medications Medications: Current Medications Amlodipine Besylate (Norvasc) 5 mg PO DAILY [facility] Last Admin: 10/04/17 09:04 Dose: 5 mg Aspirin (Ecotrin) 81 mg PO DAILY [facility] Last Admin: 10/04/17 09:03 Dose: 81 mg Atorvastatin Calcium (Lipitor) 40 mg PO DAILY [facility] Last Admin: 10/04/17 09:03 Dose: 40 mg Enoxaparin Sodium (Lovenox) 40 mg SC DAILY [facility] PRN Reason: Protocol Last Admin: 10/04/17 09:03 Dose: 40 mg Folic Acid (Folic Acid) 1 mg PO DAILY [facility] Last Admin: 10/04/17 09:03 Dose: 1 mg Lorazepam (Ativan) 1 mg IVP Q6 PRN PRN Reason: Agitation Last Admin: 10/01/17 03:38 Dose: 1 mg Ramipril (Altace) 10 mg PO DAILY [facility] Last Admin: 10/04/17 09:02 Dose: 10 mg Tamsulosin HCl (Flomax) 0.4 mg PO DAILY [facility] Last Admin: 10/04/17 09:03 Dose: 0.4 mg - Labs Labs: 10/04/17 07:35 10/03/17 15:30 PT 11.4 Seconds (9.8-13.1) 09/30/17 04:25 INR 1.0 (0.9-1.2) 09/30/17 04:25 APTT 26.2 Seconds (25.6-37.1) 09/30/17 04:25 - Constitutional Appears: No Acute Distress - Head Exam Head Exam: NORMAL INSPECTION - Eye Exam Eye Exam: PERRL - ENT Exam ENT Exam: Normal Exam - Neck Exam Neck Exam: Normal Inspection - Respiratory Exam Respiratory Exam: NORMAL BREATHING PATTERN - Cardiovascular Exam Cardiovascular Exam: REGULAR RHYTHM - GI/Abdominal Exam GI & Abdominal Exam: Soft, Normal Bowel Sounds - Extremities Exam Extremities Exam: Normal Inspection - Back Exam Back Exam: NORMAL INSPECTION - Neurological Exam Neurological Exam: Awake, CN II-XII Intact Additional comments: Ox2, moves all extremities, no gross focal motor/sensory deficit. - Psychiatric Exam Additional comments: Calm - Skin Skin Exam: Warm Assessment and Plan (1) Status post fall Status: Acute (2) Abrasion, multiple sites Status: Acute (3) Altered mental status Status: Acute (4) Aortic stenosis Status: Acute (5) Mitral regurgitation Status: Acute (6) Bladder wall thickening Status: Chronic (7) Dyslipidemia Status: Chronic - Assessment and Plan (Free Text) Plan: Pt improved and stable to be discharged home, see instruction medication sheet, f/u PMD in a week.
--- NOTE | 2017-10-06 22:22 | CON ---
DATE: 09/30/2017 REASON FOR THE CONSULTATION: Bladder wall thickening. HISTORY OF PRESENT ILLNESS: The patient was admitted to the [facility] with altered medical state after recent fall at home. The patient has been confused since in the hospital, has been disoriented. He has had an extensive workup, which does not show any evidence of subdural hematoma. The patient has no prior history at [facility] The patient is on multiple medications for hypertension. He is on Flomax and aspirin. History is not possible because the patient is confused, although he is awake and alert. REVIEW OF SYSTEMS: RESPIRATORY: There is no history of respiratory illness documented on the chart. The patient is unable to give a history. GASTROINTESTINAL: There is no history of GI illness documented on the chart. The patient cannot to give a history. GENITOURINARY: There is no history documented on the chart. The patient cannot give a history. INTEGUMENTARY: There are no skin abnormalities documented on the chart. The patient is unable to give a history. ORTHOPEDIC: There are no history of orthopedic injuries. The patient cannot give a history. SOCIAL AND FAMILY HISTORY: Not documented on the chart. The patient has no history of drug use or alcohol abuse. PHYSICAL EXAMINATION: VITAL SIGNS: Within normal limits. HEAD, EARS, EYES, NOSE, AND THROAT: Within normal limits. GENERAL: There is no evidence of paralysis. The patient follows commands, but appears confused. NECK: Supple. There is no bruits, nodes, or masses. LUNGS: Clear bilaterally. There are no rales. There are good breath sounds bilaterally. HEART: Normal sinus rhythm. ABDOMEN: Soft, nontender. There are no masses or organomegaly. RECTAL: Shows a +3 prostate which is not indurated. LABORATORY DATA: I have also reviewed the laboratory data, which shows the patient has elevated PSA of 6 and his creatinine is 1.0. The patient also had a CAT scan, which shows thickening of the bladder and a large prostate. IMPRESSION: Large prostate with bladder outlet obstruction. PLAN: Since the patient is confused, no further therapy will be started at this time. Once the patient's medical condition is maximally improved, the patient will be referred to a urologist for further workup. If the family has a urologist already, they may proceed with him or they may follow up in our office. The patient should be further evaluated for his elevated PSA to determine if further therapy is necessary. Jung Merrill MD
--- NOTE | 2017-10-08 13:33 | CP.PCM.DIS ---
Provider - Provider Date of Admission: 09/29/17 20:28 Attending physician: Danis Phipps MD Consults: Cardiology, Urology, Psychiatry and Neurology. Time Spent in preparation of Discharge (in minutes): 25 Diagnosis - Discharge Diagnosis (1) Status post fall Status: Acute Priority: High (2) Abrasion, multiple sites Status: Acute Priority: High (3) Altered mental status Status: Acute Priority: High (4) Aortic stenosis Status: Acute (5) Mitral regurgitation Status: Acute (6) Bladder wall thickening Status: Chronic (7) Dyslipidemia Status: Chronic Hospital Course - Lab Results Lab Results: Micro Results 10/01/17 09:30 Blood Blood Culture - Final NO GROWTH AFTER 5 DAYS 10/01/17 09:30 Blood Gram Stain - Final TEST NOT PERFORMED 10/02/17 08:00 Urine,Clean Catch Urine Culture - Final No Growth (<1,000 CFU/ML) Most Recent Lab Values WBC 5.6 K/uL (4.8-10.8) 10/04/17 07:35 RBC 3.73 Mil/uL (4.40-5.90) L 10/04/17 07:35 Hgb 11.9 g/dL (12.0-18.0) L 10/04/17 07:35 Hct 37.0 % (35.0-51.0) 10/04/17 07:35 MCV 99.2 fl (80.0-94.0) H D 10/04/17 07:35 MCH 31.8 pg (27.0-31.0) H 10/04/17 07:35 MCHC 32.1 g/dL (33.0-37.0) L 10/04/17 07:35 RDW 13.8 % (11.5-14.5) 10/04/17 07:35 Plt Count 220 K/uL (130-400) 10/04/17 07:35 MPV 8.5 fl (7.2-11.7) 09/29/17 18:45 Neut % (Auto) 64.3 % (50.0-75.0) 09/29/17 18:45 Lymph % (Auto) 25.1 % (20.0-40.0) 09/29/17 18:45 [place] % (Auto) 9.5 % (0.0-10.0) 09/29/17 18:45 Eos % (Auto) 0.4 % (0.0-4.0) 09/29/17 18:45 Baso % (Auto) 0.7 % (0.0-2.0) 09/29/17 18:45 Neut # 6.3 K/uL (1.8-7.0) 09/29/17 18:45 Lymph # 2.5 K/uL (1.0-4.3) 09/29/17 18:45 [place] # 0.9 K/uL (0.0-0.8) H 09/29/17 18:45 Eos # 0.0 K/uL (0.0-0.7) 09/29/17 18:45 Baso # 0.1 K/uL (0.0-0.2) 09/29/17 18:45 PT 11.4 Seconds (9.8-13.1) 09/30/17 04:25 INR 1.0 (0.9-1.2) 09/30/17 04:25 APTT 26.2 Seconds (25.6-37.1) 09/30/17 04:25 Sodium 140 mmol/l (132-148) 10/03/17 15:30 Potassium 3.8 MMOL/L (3.6-5.0) 10/03/17 15:30 Chloride 105 mmol/L (98-107) 10/03/17 15:30 Carbon Dioxide 24 mmol/L (22-30) 10/03/17 15:30 Anion Gap 15 (10-20) 10/03/17 15:30 BUN 19 mg/dl (9-20) 10/03/17 15:30 Creatinine 1.0 mg/dl (0.8-1.5) 10/03/17 15:30 Est GFR ( Amer) > 60 10/03/17 15:30 Est GFR (Non-Af Amer) > 60 10/03/17 15:30 Random Glucose 144 mg/dL (75-110) H 10/03/17 15:30 Calcium 9.2 mg/dL (8.4-10.2) 10/03/17 15:30 Total Bilirubin 0.8 mg/dl (0.2-1.3) 09/30/17 15:02 Direct Bilirubin 0.3 mg/ml (0.0-0.4) 09/30/17 15:02 AST 30 U/L (17-59) 09/30/17 15:02 ALT 35 U/L (21-72) 09/30/17 15:02 Alkaline Phosphatase 58 U/L (38-126) 09/30/17 15:02 Ammonia < 9 umo/L (16-60) L 09/30/17 15:02 Total Protein 7.2 G/DL (6.3-8.2) 09/30/17 15:02 Albumin 4.1 g/dL (3.5-5.0) 09/30/17 15:02 Globulin 3.2 gm/dL (2.2-3.9) 09/30/17 15:02 Albumin/Globulin Ratio 1.3 (1.0-2.1) 09/30/17 15:02 Triglycerides 204 mg/DL (0-149) H 09/30/17 04:25 Cholesterol 235 mg/dL (0-199) H 09/30/17 04:25 LDL Cholesterol Direct 136 mg/dL (0-129) H 09/30/17 04:25 HDL Cholesterol 64 MG/DL (30-70) 09/30/17 04:25 Amylase 79 U/L (30-110) 09/30/17 15:02 Lipase 101 U/L (23-300) 09/30/17 15:02 Prostate Specific Ag 6.11 ng/ML (0.00-4.0) H 09/30/17 19:57 Vitamin B12 319 pg/mL (239-931) 09/30/17 04:25 Thyroxine (T4) 8.23 ug/dl (5.5-11.0) 09/30/17 04:25 TSH 3rd Generation 1.58 mIU/ML (0.46-4.68) 09/30/17 04:25 Urine Color Yellow (YELLOW) 09/30/17 01:08 Urine Clarity Slighty-cloudy (Clear) 09/30/17 01:08 Urine pH 7.0 (5.0-8.0) 09/30/17 01:08 Ur Specific [place] 1.015 (1.003-1.030) 09/30/17 01:08 Urine Protein Negative mg/dL (NEGATIVE) 01/09/18 01:08 Urine Glucose (UA) Neg mg/dL (Normal) 09/30/17 01:08 Urine Ketones Negative mg/dL (NEGATIVE) 09/30/17 01:08 Urine Blood Negative (NEGATIVE) 09/30/17 01:08 Urine Nitrate Negative (NEGATIVE) 09/30/17 01:08 Urine Bilirubin Negative (NEGATIVE) 09/30/17 01:08 Urine Urobilinogen 0.2-1.0 mg/dL (0.2-1.0) 09/30/17 01:08 Ur Leukocyte Esterase Neg [place]/uL (Negative) 09/30/17 01:08 Urine RBC (Auto) 3 /hpf (0-3) 09/30/17 01:08 Urine Microscopic WBC 2 /hpf (0-5) 09/30/17 01:08 Urine Bacteria Rare (<OCC) 09/30/17 01:08 Urine Opiates Screen Negative (NEGATIVE) 09/29/17 18:45 Urine Methadone Screen Negative (NEGATIVE) 09/29/17 18:45 Ur Barbiturates Screen Negative (NEGATIVE) 09/29/17 18:45 Ur Phencyclidine Scrn Negative (NEGATIVE) 09/29/17 18:45 Ur Amphetamines Screen Negative (NEGATIVE) 09/29/17 18:45 U Benzodiazepines Scrn Negative (NEGATIVE) 09/29/17 18:45 U Oth Cocaine Metabols Negative (NEGATIVE) 09/29/17 18:45 U Cannabinoids Screen Negative (NEGATIVE) 09/29/17 18:45 Alcohol, Quantitative < 10 mg/dl (0-10) 09/29/17 18:45 Blood Type A POSITIVE 09/29/17 18:15 Antibody Screen Negative 09/29/17 18:15 BBK History Checked No verified bt 09/29/17 18:15 - Date & Time of H&P Date of H&P: 09/30/17 Time of H&P: 12:50 Discharge Exam - Head Exam Head Exam: NORMAL INSPECTION Discharge Plan - Discharge Medications Prescriptions: Ramipril [Altace] 10 mg PO DAILY #30 cap Aspirin [Ecotrin] 81 mg pe PO DAILY #30 tabec Tamsulosin [Flomax] 0.4 mg PO DAILY #30 cap Folic Acid 0.4 mg PO DAILY #30 tablet Vit B12/Folic Acid/B6/Aa15 [Glycotrol Capsule] 500 mg PO DAILY #30 capsule Atorvastatin [Lipitor] 40 mg PO DAILY #30 tab amLODIPine [Norvasc] 5 mg PO DAILY #30 tab Vit B6/Me-Thfolate/Me-B12/Ala [Podiapn Capsule] 50 mg PO DAILY #30 capsule - Follow Up Plan Condition: FAIR Disposition: HOME/ ROUTINE Patient education suggested?: Yes Instructions: Influenza Virus Vaccine (By injection), Pneumococcal Vaccine for Adults (GEN), Benign Prostatic Hypertrophy (GEN), Syncope (GEN) Additional Instructions: Follow up with PMD in one week.
--- NOTE | 2017-10-17 14:40 | EEG ---
DATE: TECHNICAL DESCRIPTION: This is a 16-channel EEG placed using [employer] 10-20 electrode placement system. Data acquisition was conducted using a spike detection program. GENERAL DESCRIPTION: This is an extremely slow EEG with posterior dominant rhythm at 6 Hz maximum on the left side and posterior dominant rhythm at 9 Hz on the right side. It was asymmetric and did not attenuate to eye opening. There was focal left hemispheric slowing with an admixture of theta and delta activity throughout the record. There were no interictal epileptiform discharges. There was no normal sleep captured. There were no subclinical or clinical seizures. IMPRESSION: This is an abnormal awake and drowsy electroencephalogram with presence focal left hemispheric slowing and an asymmetric posterior dominant rhythm indicates a mass lesion/postictal event occurring in the left hemisphere. Clinical correlation is required. James Kapadia MD
== END 2017-10-04 13:00 | disposition home or self-care (01) | DRG 948 ==
LOC: H.ER 16:17 → H.ERHOLD 20:28 → H.TEL 22:40
PROVIDERS: ADMIT Internal Medicine Pulmonary Disease; ATTEND Internal Medicine Pulmonary Disease
PROC: 3E0234Z Introduction of Serum, Toxoid and Vaccine into Muscle, Percutaneous Approach (ICD-10-PCS; principal; 2017-09-30)
DX: R41.82 Altered mental status, unspecified (principal); D64.9 Anemia, unspecified; I34.0 Nonrheumatic mitral (valve) insufficiency; W18.30XA Fall on same level, unspecified, initial encounter; I35.0 Nonrheumatic aortic (valve) stenosis; I10 Essential (primary) hypertension; Z23 Encounter for immunization; E78.00 Pure hypercholesterolemia, unspecified; N40.0 Benign prostatic hyperplasia without lower urinary tract symptoms; S00.81XA Abrasion of other part of head, initial encounter; Y93.9 Activity, unspecified; Y92.9 Unspecified place or not applicable; N32.9 Bladder disorder, unspecified; E78.5 Hyperlipidemia, unspecified